=== PATIENT | female | born 1930 | race Caucasian/White ===

== ENCOUNTER 2019-04-25 12:15 | Inpatient (IN) ==
[2019-04-25] MEDS ORDERED: EPINEPHrine 1 MG/ML AMPUL SQ ONE (12:22)
[2019-04-25] MEDS ORDERED: IPRATROPIUM/ALBUTEROL 3 ML AMPUL.NEB NEB ONE (12:22)
[2019-04-25] MEDS ORDERED: methylPREDNISolone SOD SUCC 125 MG/2 ML VIAL IV ONE (12:22)
[2019-04-25] MEDS ORDERED: TERBUTALINE 1 MG/ML VIAL SQ ONE (12:22)
[2019-04-25] MEDS ORDERED: MAGNESIUM SULFATE 2 GM/50 ML BAG IV ONE (12:22)
[2019-04-25] MEDS ORDERED: 0.9 % SODIUM CHLORIDE 1,000 ML IV ONE (12:22)
[2019-04-25] MEDS ORDERED: ALBUTEROL SULFATE 2.5 MG/3 ML NEBULIZER NEB ONE (12:34)
[2019-04-25] MEDS ORDERED: EPINEPHrine 1 MG/ML AMPUL IM ONE (12:38)
[2019-04-25 12:40] LABS: POC Blood Urea Nitrogen 28 mg/dl (8-23); POC CO2 30 mmol/L (22-30); POC Calcium, Ionized 1.25 mmol/L (1.16-1.32); POC Chloride 102 mmol/L (96-108); POC Glucose, Random 179 mg/dL (70-105); POC Potassium 4.6 mmol/L (3.3-5.1); POC Sodium 138 mmol/L (133-145)
[2019-04-25 12:58] LABS: Basophils # (Auto) 0.02 K/mcL (0.00-0.30); Basophils % (Auto) 0.3 % (0.0-2.0); Eosinophils % (Auto) 24.3 % (0.0-7.0); Granulocytes % (Auto) 52.1 % (38.0-78.0); Hematocrit 39.8 % (34.1-44.9); Hemoglobin 13.3 g/dL (11.2-15.7); Lymphocytes # (Auto) 1.09 K/mcL (1.50-4.80); Lymphocytes % (Auto) 14.7 % (15.5-49.0); Mean Cell Volume 97.1 fL (80.0-100.0); Mean Corpuscular HGB Conc 33.4 g/dL (31.0-36.0); Mean Platelet Volume 10.8 fL (7.4-10.4); Monocytes # (Auto) 0.64 K/mcL (0.10-0.90); Monocytes % (Auto) 8.6 % (1.0-12.0); Platelet Count 331 K/mcL (140-440); Red Cell Distribution Width 12.8 % (11.5-14.5); WBC 7.4 K/mcL (4.50-11.00)
--- NOTE | 2019-04-25 13:07 | Emergency Department Note ---
SOB HPI - General Chief Complaint: Shortness of Breath/Dyspnea Stated Complaint: Shortness of breath Time Seen by Provider: 04/25/19 12:22 Source: patient Mode of arrival: ambulatory Limitations: no limitations - History of Present Illness 88-year-old female with history of asthma comes in complaining of shortness of breath for the last 3 days. Her oxygen levels are 62%. She has a cough and some mild congestion but denies any fever. She is a non-smoker and always has been but she was exposed to secondhand smoke as a child and throughout her working years. She does use a BiPAP at night but I am having difficulty getting significant history from her as she is having trouble talking and breathing. No trouble with a bowel movement or urinating Her is here as well and gives me some supplemental history. Review of systems I was unable to obtain other than above She is not DNR and wants everything done including and up to intubation - Related Data Previous Rx's Medication Instructions Recorded predniSONE [Prednisone] 20 mg PO BID 3 Days #12 tab 01/03/18 Albuterol Sulfate [Ventolin] 2 puff INH Q4-6HP PRN #1 inhaler 01/07/18 Ipratropium/Albuterol [Duoneb] 3 ml NEB Q4HRT #120 ampul.neb 01/07/18 Benzonatate 200 mg PO Q8HP PRN #30 cap 01/08/19 Ipratropium/Albuterol [Duoneb] 3 ml NEB Q4HP PRN #30 ampul.neb 01/23/19 guaiFENesin/CODEINE [Robitussin AC] 10 ml PO Q4HP PRN #120 oral.robert 01/23/19 predniSONE [Prednisone] 20 mg PO DAILY #23 tab 01/23/19 Allergies Allergy/AdvReac Type Severity Reaction Status Date / Time codeine [CODEINE] Allergy Mild VOMITING Verified 04/25/19 12:20 egg AdvReac Intermediate Gastrointestinal Verified 04/25/19 12:20 Upset lactase [From Dairy Aid] AdvReac Intermediate Gastrointestinal Verified 04/25/19 12:20 Upset Review of Systems Limitations: ROS unobtainable due to patients medical condition Past Medical History - Past Medical History Attestation: Yes: The following information was validated with the patient. Medical history: Reports: arthritis, asthma, glaucoma, hypertension, other (Raynaud's phenomena) Surgical history ED: Reports: orthopedic, other (Bilateral knees), tonsillectomy - Social History smoking status: Never smoker Alcohol use: Reports: None Drug use: Reports: none Physical Exam Thin female in obvious respiratory failure with oxygen level of 62% now on a nonrebreather mask, now with oxygen saturation levels of 100%. She cannot speak in full sentences and so my history and review of systems is limited. She has significant wheezing throughout all lung rod and is not moving air well. Some cyanosis on her fingers. Oropharynx with dry buccal mucosa. Very fatigued She got a treatment of DuoNeb and then another treatment of albuterol. She is moving air much better now on BiPAP. Normocephalic atraumatic. Conjunctive are clear sclera white nonicteric. No nasal discharge. Heart is regular rate and rhythm. Lungs are much clearer now I do not hear any rales but it is difficult to hear over the sounds of her BiPAP. She is tolerating that well. Abdomen is soft nontender nondistended. No pedal edema. She has osteoarthritic changes to her hands fingers Limitations: no limitations Course Vital Signs Temperature 97.1 F 04/25/19 12:15 Pulse Rate 88 04/25/19 12:15 Respiratory Rate 24 H 04/25/19 12:15 Blood Pressure 160/88 04/25/19 12:15 Pulse Oximetry (%) 62 L 04/25/19 12:15 Temperature 97.1 F 04/25/19 12:15 Pulse Rate 73 04/25/19 14:17 Respiratory Rate 18 04/25/19 14:17 Blood Pressure 134/66 04/25/19 13:46 Pulse Oximetry (%) 100 04/25/19 14:17 Shortness of Breath/Dyspnea - Lab Data Lab results reviewed: Yes I reviewed the patient's lab results. Result diagrams: 04/25/19 12:25 04/25/19 12:25 Lab Results 04/25/19 04/25/19 04/25/19 Range/Units 12:25 12:25 12:25 WBC 7.4 (4.50-11.00) K/mcL RBC 4.10 (3.59-5.38) M/mcL Hgb 13.3 (11.2-15.7) g/dL Hct 39.8 (34.1-44.9) % POC Hct (36.0-48.0) % MCV 97.1 (80.0-100.0) fL MCH 32.4 (26.0-34.0) pg MCHC 33.4 (31.0-36.0) g/dL RDW 12.8 (11.5-14.5) % Plt Count 331 (140-440) K/mcL MPV 10.8 H (7.4-10.4) fL Gran % 52.1 (38.0-78.0) % Lymph % (Auto) 14.7 L (15.5-49.0) % [place] % (Auto) 8.6 (1.0-12.0) % Eos % (Auto) 24.3 H (0.0-7.0) % Baso % (Auto) 0.3 (0.0-2.0) % Gran # 3.86 (1.80-8.00) K/mcL Lymph # (Auto) 1.09 L (1.50-4.80) K/mcL [place] # (Auto) 0.64 (0.10-0.90) K/mcL Eos # (Auto) 1.80 H (0.00-0.70) K/mcL Baso # (Auto) 0.02 (0.00-0.30) K/mcL PT 12.7 (11.9-14.5) sec INR 0.9 (0.9-1.1) D-Dimer 0.87 H (0.00-0.40) ug/ml VBG Lactic Acid (0.5-2.0) mmol/L POC Sodium (133-145) mmol/L Sodium (133-145) mmol/L POC Potassium (3.3-5.1) mmol/L Potassium (3.3-5.1) mmol/L POC Chloride (96-108) mmol/L Chloride (96-108) mmol/L Carbon Dioxide (22-30) mmol/L POC Total CO2 (22-30) mmol/L Anion Gap (8-16) POC BUN (8-23) mg/dl BUN (8-23) mg/dl Creatinine (0.6-1.1) mg/dl POC Creatinine (0.6-1.1) mg/dl GFR Calculation Glucose (70-105) mg/dL POC Glucose (70-105) mg/dL Calcium (8.6-10.4) mg/dl POC WB Ioniz Calcium (1.16-1.32) mmol/L Magnesium (1.6-2.5) mg/dL Total Bilirubin (0.0-1.0) mg/dL AST (0-37) U/l ALT (0-40) U/l Alkaline Phosphatase (39-117) U/L Troponin T (0-0.03) ng/ml Total Protein (5.9-8.4) gm/dL Albumin (3.2-5.2) gm/dL Globulin (2.2-3.7) gm/dL Albumin/Globulin Ratio (1.0-2.3) Lipase (7-60) U/L Procalcitonin < 0.05 (<0.10) ng/mL Urine Color Urine Appearance Urine pH (5.0-9.0) Ur Specific [place] (1.000-1.035) Urine Protein (NEG) mg/dL Urine Glucose (UA) (NEG) mg/dL Urine Ketones (NEG) mg/dL Urine Occult Blood (<0.03) mg/dL Urine Nitrate (NEG) Urine Bilirubin (NEG) mg/dL Urine Urobilinogen (NEG) mg/dL Ur Leukocyte Esterase (NEG) /uL Urine RBC (0-1) /hpf Urine WBC (0-4) /hpf Ur Squamous Epith Cells (0-4) /hpf Urine Bacteria (0) /hpf Hyaline Casts (0-2) /lpf Urine Mucus (0) /hpf Ur Culture Indicated? 04/25/19 04/25/19 04/25/19 Range/Units 12:25 12:25 12:25 WBC (4.50-11.00) K/mcL RBC (3.59-5.38) M/mcL Hgb (11.2-15.7) g/dL Hct (34.1-44.9) % POC Hct 42.0 (36.0-48.0) % MCV (80.0-100.0) fL MCH (26.0-34.0) pg MCHC (31.0-36.0) g/dL RDW (11.5-14.5) % Plt Count (140-440) K/mcL MPV (7.4-10.4) fL Gran % (38.0-78.0) % Lymph % (Auto) (15.5-49.0) % [place] % (Auto) (1.0-12.0) % Eos % (Auto) (0.0-7.0) % Baso % (Auto) (0.0-2.0) % Gran # (1.80-8.00) K/mcL Lymph # (Auto) (1.50-4.80) K/mcL [place] # (Auto) (0.10-0.90) K/mcL Eos # (Auto) (0.00-0.70) K/mcL Baso # (Auto) (0.00-0.30) K/mcL PT (11.9-14.5) sec INR (0.9-1.1) D-Dimer (0.00-0.40) ug/ml VBG Lactic Acid 1.2 (0.5-2.0) mmol/L POC Sodium 138 (133-145) mmol/L Sodium 136 (133-145) mmol/L POC Potassium 4.6 (3.3-5.1) mmol/L Potassium 4.6 (3.3-5.1) mmol/L POC Chloride 102 (96-108) mmol/L Chloride 98 (96-108) mmol/L Carbon Dioxide 21 L (22-30) mmol/L POC Total CO2 30 (22-30) mmol/L Anion Gap 17.0 H (8-16) POC BUN 28 H (8-23) mg/dl BUN 22 (8-23) mg/dl Creatinine 1.0 (0.6-1.1) mg/dl POC Creatinine 1.0 (0.6-1.1) mg/dl GFR Calculation 51 Glucose 185 H (70-105) mg/dL POC Glucose 179 H (70-105) mg/dL Calcium 9.4 (8.6-10.4) mg/dl POC WB Ioniz Calcium 1.25 (1.16-1.32) mmol/L Magnesium 2.2 (1.6-2.5) mg/dL Total Bilirubin 0.2 (0.0-1.0) mg/dL AST 29 (0-37) U/l ALT 20 (0-40) U/l Alkaline Phosphatase 84 (39-117) U/L Troponin T < 0.01 (0-0.03) ng/ml Total Protein 7.8 (5.9-8.4) gm/dL Albumin 4.5 (3.2-5.2) gm/dL Globulin 3.3 (2.2-3.7) gm/dL Albumin/Globulin Ratio 1.4 (1.0-2.3) Lipase 15 (7-60) U/L Procalcitonin (<0.10) ng/mL Urine Color Urine Appearance Urine pH (5.0-9.0) Ur Specific [place] (1.000-1.035) Urine Protein (NEG) mg/dL Urine Glucose (UA) (NEG) mg/dL Urine Ketones (NEG) mg/dL Urine Occult Blood (<0.03) mg/dL Urine Nitrate (NEG) Urine Bilirubin (NEG) mg/dL Urine Urobilinogen (NEG) mg/dL Ur Leukocyte Esterase (NEG) /uL Urine RBC (0-1) /hpf Urine WBC (0-4) /hpf Ur Squamous Epith Cells (0-4) /hpf Urine Bacteria (0) /hpf Hyaline Casts (0-2) /lpf Urine Mucus (0) /hpf Ur Culture Indicated? 04/25/19 Range/Units 13:40 WBC (4.50-11.00) K/mcL RBC (3.59-5.38) M/mcL Hgb (11.2-15.7) g/dL Hct (34.1-44.9) % POC Hct (36.0-48.0) % MCV (80.0-100.0) fL MCH (26.0-34.0) pg MCHC (31.0-36.0) g/dL RDW (11.5-14.5) % Plt Count (140-440) K/mcL MPV (7.4-10.4) fL Gran % (38.0-78.0) % Lymph % (Auto) (15.5-49.0) % [place] % (Auto) (1.0-12.0) % Eos % (Auto) (0.0-7.0) % Baso % (Auto) (0.0-2.0) % Gran # (1.80-8.00) K/mcL Lymph # (Auto) (1.50-4.80) K/mcL [place] # (Auto) (0.10-0.90) K/mcL Eos # (Auto) (0.00-0.70) K/mcL Baso # (Auto) (0.00-0.30) K/mcL PT (11.9-14.5) sec INR (0.9-1.1) D-Dimer (0.00-0.40) ug/ml VBG Lactic Acid (0.5-2.0) mmol/L POC Sodium (133-145) mmol/L Sodium (133-145) mmol/L POC Potassium (3.3-5.1) mmol/L Potassium (3.3-5.1) mmol/L POC Chloride (96-108) mmol/L Chloride (96-108) mmol/L Carbon Dioxide (22-30) mmol/L POC Total CO2 (22-30) mmol/L Anion Gap (8-16) POC BUN (8-23) mg/dl BUN (8-23) mg/dl Creatinine (0.6-1.1) mg/dl POC Creatinine (0.6-1.1) mg/dl GFR Calculation Glucose (70-105) mg/dL POC Glucose (70-105) mg/dL Calcium (8.6-10.4) mg/dl POC WB Ioniz Calcium (1.16-1.32) mmol/L Magnesium (1.6-2.5) mg/dL Total Bilirubin (0.0-1.0) mg/dL AST (0-37) U/l ALT (0-40) U/l Alkaline Phosphatase (39-117) U/L Troponin T (0-0.03) ng/ml Total Protein (5.9-8.4) gm/dL Albumin (3.2-5.2) gm/dL Globulin (2.2-3.7) gm/dL Albumin/Globulin Ratio (1.0-2.3) Lipase (7-60) U/L Procalcitonin (<0.10) ng/mL Urine Color Yellow Urine Appearance Hazy Urine pH 6.0 (5.0-9.0) Ur Specific [place] 1.018 (1.000-1.035) Urine Protein 30 A (NEG) mg/dL Urine Glucose (UA) Negative (NEG) mg/dL Urine Ketones Neg (NEG) mg/dL Urine Occult Blood 0.2 A (<0.03) mg/dL Urine Nitrate Neg (NEG) Urine Bilirubin Neg (NEG) mg/dL Urine Urobilinogen Neg (NEG) mg/dL Ur Leukocyte Esterase 75 A (NEG) /uL Urine RBC 64 H (0-1) /hpf Urine WBC 119 H (0-4) /hpf Ur Squamous Epith Cells < 1 (0-4) /hpf Urine Bacteria Mod A (0) /hpf Hyaline Casts 9 H (0-2) /lpf Urine Mucus Few (0) /hpf Ur Culture Indicated? Yes Shows pH 7.25 PCO2 of 61 PO2 of 181 on 6 L nonrebreather mask - Radiology Data Radiology results reviewed: Yes I reviewed the patient's radiology results. X-ray of the chest shows stigmata of chronic emphysema versus asthma. No infiltrate is seen. No acute change - EKG Data EKG attestation: Yes I reviewed and interpreted this EKG. EKG results narrative: EKG shows sinus rhythm with a rate of 77 first-degree AV block. She does have a widened QRS with nonspecific interventricular conduction delay. ST elevation is noted in V1 and V2. When compared to 01/[address] elevation back then in V1 and V2 but it does seem slightly worse today especially in these leads. However she previously had ST depression in the inferior leads and that is not present today. Machine read is the same with possible anteroseptal infarct- suspect heart strain secondary to respiratory failure Critical Care Time Critical Care Time: Yes Total Critical Care Time: 30 Attestation: This patient required 30 minutes of additional critical care time in addition to valuation and management time. This included serial evaluations coordination of care and documentation as well as discussion with her and her family. I was immediately available to the patient the entire time she was in the ER Disposition Pt seen by CONTAINER MAKER/PA only: No Clinical Impression: Asthma with exacerbation Qualifiers: Asthma severity: severe Asthma persistence: unspecified Qualified Code(s): J45 .901 - Unspecified asthma with (acute) exacerbation Respiratory failure with hypoxia and hypercapnia Qualifiers: Chronicity: acute Qualified Code(s): J96.01 - Acute respiratory failure with hypoxia Summary: Initially started on nasal cannula oxygen and then nonrebreather mask. After the first DuoNeb she was still having significant trouble moving air so I gave her epinephrine 0.3 mg IM. She also got subcu terbutaline IV magnesium. We then gave her another dose of albuterol nebulized. She had much improvement with 2 rounds of nebulizer. However blood gases showed respiratory failure with both hypoxia and hypercapnia and she is not moving air well so I discussed with her moving to BiPAP. She wants everything done-in fact it sounds like she may be on CPAP or BiPAP at night with Omar but I am unable to get further details as her and her do not know the specifics about what exactly machine she is on at night. Anyways we started BiPAP and she was doing much better. We will give her continuous albuterol nebulizer. Chest x-ray shows stigmata of asthma or COPD but no acute infiltrate. EKG shows some heart strain but it does not seem much worse than January's EKG 3 months ago. Troponin is negative and laboratories are unrevealing. Patient will require ICU admission to continue BiPAP and respiratory care Flu swab was negative I discussed the case with -he agreed except the patient further care and evaluation in the hospital Disposition: Xfer As Inpt ([facility]) Condition: Critical Referrals: Iftikhar Rios MD [Primary Care Provider] -
[2019-04-25 13:11] LABS: INR 0.9 (0.9-1.1); Prothrombin Time 12.7 sec (11.9-14.5)
--- NOTE | 2019-04-25 13:22 | XRay Report ---
CLINICAL INFORMATION:Dyspnea TECHNIQUE: AP portable semiupright chest x-ray COMPARISON: Previous chest x-ray dated 01/23/2019, 01/08/2019 FINDINGS:Lungs are negative. No parenchymal infiltrate or mass. No focal pulmonary parenchymal abnormalities. Heart size and vascularity are normal. Eun and mediastinum are negative. There is no pleural fluid. Degenerative joint disease in both glenohumeral joints. Rotator cuff degeneration in the left shoulder IMPRESSION: No acute abnormality. No interval change Interpreted and Authenticated by: Brent Klein 04/25/19
[2019-04-25 13:34] LABS: Chloride 98 mmol/L (96-108)
[2019-04-25 13:36] LABS: ALT/SGPT 20 U/l (0-40); AST/SGOT 29 U/l (0-37); Albumin 4.5 gm/dL (3.2-5.2); Albumin/Globulin Ratio 1.4 (1.0-2.3); Alkaline Phosphatase 84 U/L (39-117); Bilirubin,Total 0.2 mg/dL (0.0-1.0); Blood Urea Nitrogen 22 mg/dl (8-23); Calcium 9.4 mg/dl (8.6-10.4); Carbon Dioxide 21 mmol/L (22-30); Globulin 3.3 gm/dL (2.2-3.7); Glomerular Filtration Rate 51; Glucose 185 mg/dL (70-105)
[2019-04-25] MEDS ORDERED: ALBUTEROL SULFATE 5 MG/ML NEB SOLUTION BOTTLE NEB ONE (13:52)
[2019-04-25 14:25] LABS: Appearance,Urine HAZY; Bacteria,Urine MOD /hpf (0); Bilirubin,Urine NEG (NEG); Color,Urine YELLOW; Culture Indicated,Urine YES; Glucose,Urine (UA) NEGATIVE (NEG); Ketones,Urine NEG (NEG); Leukocyte Esterase,Urine 75 /uL (NEG); Mucus,Urine FEW /hpf (0); Nitrate,Urine NEG (NEG); Protein,Urine 30 mg/dL (NEG); Specific Gravity,Urine 1.018 (1.000-1.035); Urine Blood 0.2 mg/dL (<0.03); Urine Hyaline Cast 9 /lpf (0-2); Urine RBC 64 /hpf (0-1); Urine Squamous Epithelial Cell < 1 /hpf (0-4); Urine WBC 119 /hpf (0-4); Urobilinogen,Urine NEG (NEG)
--- NOTE | 2019-04-25 15:01 | Internal Med History&Physical ---
Medical - H&P: HPI Patient information: Note initiated : 04/25/19 at 2:59 pm Service Date, if different from initiated Date: [] Patient: Jaiden Acosta 88 y/o F admitted on for Shortness of breath. Chief Complaint: [] History of present illness: Ms. Acosta is a 88 year old F History is difficult obtain as patient is currently on BiPAP but per the staffing notes and what patient was able to relay. Sounds like she has had shortness of breath worsening for past 3 days. She was found to have oxygen saturations of 62% on room air. She denied a cough to me but per note she had a cough with some congestion. Denied fever. She is never been a smoker but she is been a exposed to secondhand smoke as a child and throughout her working years. Sounds like she uses a CPAP machine at night. She did have PFTs done by Dr. Sandra last fall which were reversible consistent with asthma but per his note also could be consistent with COPD. She does admit to wearing oxygen day and night at 2.5 L. In the ER she got multiple breathing treatments including continuous nebulizers with improvement. She is also placed on BiPAP for hypoxia and hypercapnic respiratory failure and is showing improvement. Laboratory work-up unremarkable except for the respiratory acidosis on ABG. Chest x-ray unremarkable. Also complains of dysuria. Review of Systems: Pertinent positives as above. Denies headache/fever/chills/nausea/vomi ting/chest or abdominal pain/diarrhea. Remaining 10 point review of system reviewed negative Medical - H&P: PMH Medical history: Past medical history: COPD Asthma Raynauds Hypertension Depression anxiety 2016 she fell after being intoxicated and suffered a subdural hematoma, was admitted at [facility] for observation. Past surgical history: Bilateral knee surgery Tonsillectomy Appendectomy Family: Mother had breast cancer Father is healthy Social history: Patient never smoked but has been exposed to secondhand smoke throughout her childhood and throughout her working years Drinks alcohol socially Ambulates occasionally with a walker when she feels she needs it Lives at home with her Medical - H&P: Meds Home Medications Medication Instructions Recorded Confirmed Type predniSONE [Prednisone] 20 mg PO BID 3 Days #12 tab 01/03/18 04/25/19 Rx Albuterol Sulfate [Ventolin] 2 puff INH Q4-6HP PRN #1 inhaler 01/07/18 04/25/19 Rx Ipratropium/Albuterol [Duoneb] 3 ml NEB Q4HRT #120 ampul.neb 01/07/18 04/25/19 Rx Benzonatate 200 mg PO Q8HP PRN #30 cap 01/08/19 04/25/19 Rx Ipratropium/Albuterol [Duoneb] 3 ml NEB Q4HP PRN #30 ampul.neb 01/23/19 04/25/19 Rx guaiFENesin/CODEINE [Robitussin AC] 10 ml PO Q4HP PRN #120 oral.robert 01/23/19 04/25/19 Rx predniSONE [Prednisone] 20 mg PO DAILY #23 tab 01/23/19 04/25/19 Rx Allergies Allergy/AdvReac Type Severity Reaction Status Date / Time codeine [CODEINE] Allergy Mild VOMITING Verified 04/25/19 12:20 egg AdvReac Intermediate Gastrointestinal Verified 04/25/19 12:20 Upset lactase [From Dairy Aid] AdvReac Intermediate Gastrointestinal Verified 04/25/19 12:20 Upset Medical - H&P: Exam - Constitutional Vitals: Temp Pulse Resp BP Pulse Ox 97.1 F 73 18 134/66 100 04/25/19 12:15 04/25/19 14:17 04/25/19 14:17 04/25/19 13:46 04/25/19 14:17 Exam: General: Alert, Awake, No acute Distress Eyes/N/T: EOMI, PERRL, MM Head/Neck: neck supple, normocephalic atraumatic CV: RRR, No murmurs, normal s1/s2 Pulm: b/l diminished, significant wheezing b/l exp, no /rales Abd: soft, nontender, +BS x4 Ext: no clubbing/cyanosis/edema Neuro: Alert, no focal deficits, moves all extremities, CN 2-12 grossly intact, symmetrical strength b/l upper/lower, sensations intact b/l upper/lower Skin: warm/dry Medical - H&P: Reslt - Labs CBC & Chem 7: 04/25/19 12:25 04/25/19 12:25 Labs: Short CBC 04/25/19 Range/Units 12:25 WBC 7.4 (4.50-11.00) K/mcL Hgb 13.3 (11.2-15.7) g/dL Hct 39.8 (34.1-44.9) % Plt Count 331 (140-440) K/mcL BMP 04/25/19 12:25 Sodium 136 Potassium 4.6 Chloride 98 Carbon Dioxide 21 L BUN 22 Creatinine 1.0 Glucose 185 H Calcium 9.4 Cardiac Enzymes 04/25/19 Range/Units 12:25 Troponin T < 0.01 (0-0.03) ng/ml Liver Function 04/25/19 Range/Units 12:25 Total Bilirubin 0.2 (0.0-1.0) mg/dL AST 29 (0-37) U/l ALT 20 (0-40) U/l Alkaline Phosphatase 84 (39-117) U/L Albumin 4.5 (3.2-5.2) gm/dL Urine 04/25/19 Range/Units 13:40 Urine Color Yellow Urine Appearance Hazy Urine pH 6.0 (5.0-9.0) Ur Specific [place] 1.018 (1.000-1.035) Urine Protein 30 A (NEG) mg/dL Urine Glucose (UA) Negative (NEG) mg/dL Medical - H&P: A/P - Narrative A/P Narrative: A: *Acute hypoxic/hypercapnic respiratory failure: 2/2 COPD/asthma -CXR with COPD changes, no acute findings *AECOPD (2.5L@home and ?CPAP@night: *UTI: *HTN: *Depression/anxiety: * P: -BiPAP, wean as able, follow-up ABG -Steroids (wean) -IS/Acapella/RT/nebs -Antibiotics empiric and for UTI, pending UC -Obtain records from primary care provider and [facility] regarding breathing device -SSI while on steroids -clarify home meds - -ppx: Lovenox full code
[2019-04-25] MEDS ORDERED: MAGNESIUM SULFATE 2 GM/50 ML BAG IV PRN (16:52)
[2019-04-25] MEDS ORDERED: POTASSIUM CHLORIDE 40 MEQ in DEXTROSE 5% IN WATER 500 ML IV PRN (16:52)
[2019-04-25] MEDS ORDERED: ONDANSETRON 4 MG/2 ML VIAL IV PRN (16:52)
[2019-04-25] MEDS ORDERED: IPRATROPIUM/ALBUTEROL 3 ML AMPUL.NEB NEB PRN (16:52)
[2019-04-25] MEDS ORDERED: POLYETHYLENE GLYCOL 3350 17 GM PACKET PO PRN (16:52)
[2019-04-25] MEDS ORDERED: POTASSIUM CHLORIDE 20 MEQ TABLET PO PRN ×2 (16:52)
[2019-04-25] MEDS ORDERED: SENNOSIDES 1 TABLET PO PRN (16:52)
[2019-04-25] MEDS ORDERED: DEXTROSE 50% 50 ML VIAL IV PRN (16:52)
[2019-04-25] MEDS ORDERED: DEXTROSE 31 GM ORAL.SUSP PO PRN (16:52)
[2019-04-25] MEDS: LEVOFLOXACIN 500 MG/100 ML BAG IV SCH (17:37)
[2019-04-25] MEDS: INSULIN LISPRO 1 UNIT/0.01 ML UNIT SQ SCH ×2 (17:43→21:10)
[2019-04-25] MEDS: BUDESONIDE 0.5 MG/2 ML AMPUL.NEB NEB SCH ×2 (18:07→20:33)
[2019-04-25] MEDS: IPRATROPIUM/ALBUTEROL 3 ML AMPUL.NEB NEB SCH (18:07)
[2019-04-25] MEDS ORDERED: ALPRAZOLAM PO PRN (19:51)
[2019-04-25] MEDS ORDERED: ALBUTEROL SULFATE 1 PUFF INHALER INH PRN (19:51)
[2019-04-25] MEDS ORDERED: ALPRAZolam 0.5 MG TABLET PO PRN (20:53)
[2019-04-25] MEDS ORDERED: IMIPRAMINE 50 MG TABLET PO SCH ×2 (21:00)
[2019-04-25] MEDS: methylPREDNISolone SOD SUCC 125 MG/2 ML VIAL IV SCH (21:09)
[2019-04-25] MEDS: 0.9 % SODIUM CHLORIDE 10 ML SYRINGE IV SCH (21:11)
[2019-04-25] MEDS ORDERED: ALPRAZolam 0.5 MG TABLET ONE (21:29)
[2019-04-25] MEDS: BIMATOPROST EYE OS SCH (21:48)
[2019-04-25] MEDS ORDERED: PRAMIPEXOLE 1 MG TABLET PO ONE (23:40)
[2019-04-26] MEDS: IPRATROPIUM/ALBUTEROL 3 ML AMPUL.NEB NEB SCH ×4 (03:19→18:07)
[2019-04-26] MEDS: methylPREDNISolone SOD SUCC 125 MG/2 ML VIAL IV SCH ×3 (05:56→22:02)
[2019-04-26] MEDS: 0.9 % SODIUM CHLORIDE 10 ML SYRINGE IV SCH ×4 (05:57→22:04)
[2019-04-26] MEDS: BUDESONIDE 0.5 MG/2 ML AMPUL.NEB NEB SCH ×3 (07:45→22:09)
--- NOTE | 2019-04-26 07:53 | Internal Med Progress Note ---
Medical - PN: Subj Patient information: Note initiated : 04/26/19 at 7:48 am Service Date, if different from initiated Date: [] Patient: Jaiden Acosta 88 y/o F admitted on 04/25/19 for Shortness of breath. Chief Complaint: [] Interval history: Ms. Acosta is a 88 year old F History is difficult obtain as patient is currently on BiPAP but per the staffing notes and what patient was able to relay. Sounds like she has had shortness of breath worsening for past 3 days. She was found to have oxygen saturations of 62% on room air. She denied a cough to me but per note she had a cough with some congestion. Denied fever. She is never been a smoker but she is been a exposed to secondhand smoke as a child and throughout her working years. Sounds like she uses a CPAP machine at night. She did have PFTs done by Dr. Buck smith last fall which were reversible consistent with asthma but per his note also could be consistent with COPD. She does admit to wearing oxygen day and night at 2.5 L. In the ER she got multiple breathing treatments including continuous nebulizers with improvement. She is also placed on BiPAP for hypoxia and hypercapnic respiratory failure and is showing improvement. Laboratory work-up unremarkable except for the respiratory acidosis on ABG. Chest x-ray unremarkable. Also complains of dysuria. 04/26 Off BiPAP now on nasal cannula. Has occasional cough. Shortness of breath improving this still feels tight. Sitting up in chair. Review of Systems: denies headache/fever/chills/nausea/vomiting/chest or abdominal pain/diarrhea. Otherwise see above. - Constitutional Vitals: Vital Signs Temp Pulse Resp BP Pulse Ox 97.0 F 66 17 166/74 100 04/26/19 00:13 04/26/19 05:00 04/26/19 05:00 04/26/19 04:03 04/26/19 05:00 Period Temp Pulse Resp BP Sys/Mckeon Pulse Ox Last 24 Hr 97.0 F-98.3 F 65-94 14-30 128-177/65-156 62-100 Intake and Output 04/25/19 04/26/19 04/26/19 21:59 05:59 13:59 Intake Total 1150 Balance 1150 Weight 47.219 kg Intake & Output: Intake & Output 04/25/19 04/26/19 04/26/19 21:59 05:59 13:59 Intake Total 1150 Balance 1150 Weight 47.219 kg Intake: IV 1150 Sodium Chloride 0.9% 1,000 ml @ 1000 Wide Open IV .Q0M ONE Rx#: [id number] Exam: General: Alert, Awake, No acute Distress Eyes/N/T: EOMI, Head/Neck: neck supple, CV: RRR, No murmurs, normal s1/s2 Pulm: b/l diminished but improved, wheezing b/l exp also improved, prolonged exp phase, no /rales Abd: soft, nontender, +BS x4 Ext: no clubbing/cyanosis/edema Neuro: Alert, no focal deficits, moves all extremities, Skin: warm/dry Medical - PN: Obj Da - Labs CBC & Chem 7: 04/25/19 12:25 04/26/19 05:35 Labs: Abnormal Lab Results 04/25/19 04/25/19 04/25/19 13:40 12:25 12:25 MPV Lymph % (Auto) Eos % (Auto) Lymph # (Auto) Eos # (Auto) D-Dimer 0.87 H Carbon Dioxide 21 L Anion Gap 17.0 H POC BUN 28 H Glucose 185 H POC Glucose 179 H Urine Protein 30 A Urine Occult Blood 0.2 A Ur Leukocyte Esterase 75 A Urine RBC 64 H Urine WBC 119 H Urine Bacteria Mod A Hyaline Casts 9 H 04/25/19 12:25 MPV 10.8 H Lymph % (Auto) 14.7 L Eos % (Auto) 24.3 H Lymph # (Auto) 1.09 L Eos # (Auto) 1.80 H D-Dimer Carbon Dioxide Anion Gap POC BUN Glucose POC Glucose Urine Protein Urine Occult Blood Ur Leukocyte Esterase Urine RBC Urine WBC Urine Bacteria Hyaline Casts Meds: Medications Acetaminophen (Tylenol) 650 mg PO Q6HP PRN PRN Reason: PAIN/FEVER > 101 Albuterol Sulfate (Ventolin) 2 puff INH Q4-6HP PRN PRN Reason: Wheezing Albuterol/Ipratropium (Duoneb) 3 ml NEB Q6HRT [facility] Last Admin: 04/26/19 03:19 Dose: 3 ml Documented by: Albuterol/Ipratropium (Duoneb) 3 ml NEB Q4HP PRN PRN Reason: Shortness Of Breath Last Admin: 04/25/19 22:24 Dose: 3 ml Documented by: Alprazolam (Xanax) 1 mg PO HSP PRN PRN Reason: Insomnia Budesonide (Pulmicort) 0.5 mg NEB Q12 [facility] Last Admin: 04/25/19 20:33 Dose: Not Given Documented by: Dextrose (Dextrose 50%) 0 ml IV UD PRN PRN Reason: Hypoglycemia Diagnostic Test (Pha) (Accu-Chek) 1 each FS [facility] Last Admin: 04/25/19 21:09 Dose: 1 each Documented by: Duloxetine HCl (Cymbalta) 60 mg PO DAILY [facility] Enoxaparin Sodium (Lovenox) 40 mg SQ DAILY [facility] Fluoxetine HCl (Prozac) 40 mg PO DAILY [facility] Glucose (Insta-Glucose) 15 gm PO PRN PRN PRN Reason: Hypoglycemia Potassium Chloride 40 meq/ (Dextrose) 520 mls @ 130 mls/hr IV UD PRN PRN Reason: Potassium < 3 Magnesium Sulfate (Magnesium Sulfate) 2 gm in 50 mls @ 50 mls/hr IV UD PRN PRN Reason: Magnesium </= 1.6 Levofloxacin (Levaquin) 500 mg in 100 mls @ 100 mls/hr IV Q24H [facility]; Protocol Last Infusion: 04/25/19 18:37 Dose: Infused Documented by: Imipramine HCl (Tofranil) 50 mg PO HS [facility] Last Admin: 04/25/19 21:10 Dose: 50 mg Documented by: Insulin Human Lispro (Humalog) 0 unit SQ [facility]; Protocol Last Admin: 04/25/19 21:10 Dose: 2 units Documented by: Levothyroxine Sodium (Synthroid) 50 mcg PO QAMAC [facility] Methylprednisolone Sodium Succinate (Solu-Medrol) 80 mg IV Q8 [facility] Last Admin: 04/26/19 05:56 Dose: 80 mg Documented by: Ondansetron HCl (Zofran) 4 mg IV Q4HP PRN PRN Reason: Nausea And Vomiting Bimatoprost [Lumigan (] Eye Drops) 1 dose OS [facility] Last Admin: 04/25/19 21:48 Dose: Not Given Documented by: Polyethylene Glycol (Miralax) 17 gm PO DAILYP PRN PRN Reason: Constipation Potassium Chloride (Kdur) 40 meq PO UD PRN PRN Reason: Potssium is 3-3.5 Potassium Chloride (Kdur) 40 meq PO UD PRN PRN Reason: Potassium < 3 Senna (Senokot) 2 tab PO DAILYP PRN PRN Reason: Constipation Sodium Chloride (Saline Flush) 10 ml IV Q8 [facility] Last Admin: 04/26/19 05:57 Dose: 10 ml Documented by: Timolol Maleate (Timoptic 0.25% Ophth Drops) 1 gtt OU DAILY [facility] Medical - PN: A/P - Time Spent With Patient Total time spent is greater than 50% in coordination of care (as documented) at patient's floor/unit and/or counseling patient: - Narrative A/P Narrative: A: *Acute hypoxic/hypercapnic respiratory failure: 2/2 COPD/asthma -CXR with COPD changes, no acute findings -required BIpap initially, now on NC *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 Sandra -ppx: Lovenox full code Medical - PN: Qual - VTE Deep Vein Thrombosis/Pulmonary Embolism Present on Admission: No
[2019-04-26] MEDS: INSULIN LISPRO 1 UNIT/0.01 ML UNIT SQ SCH ×4 (08:49→22:02)
[2019-04-26] MEDS: LEVOTHYROXINE 50 MCG TABLET PO SCH (08:49)
[2019-04-26] MEDS: FLUoxetine HCL 20 MG CAPSULE PO SCH (08:50)
[2019-04-26] MEDS: ENOXAPARIN 40 MG/0.4 ML SYRINGE SQ SCH (08:50)
[2019-04-26] MEDS: DULoxetine 30 MG CAPSULE PO SCH (08:50)
[2019-04-26] MEDS ORDERED: PRAMIPEXOLE 0.25 MG TABLET PO SCH ×2 (09:00→21:00)
[2019-04-26] MEDS: LEVOFLOXACIN 500 MG/100 ML BAG IV SCH (09:10)
[2019-04-26 09:36] LABS: ALT/SGPT 17 U/l (0-40); AST/SGOT 22 U/l (0-37); Albumin 3.8 gm/dL (3.2-5.2); Albumin/Globulin Ratio 1.4 (1.0-2.3); Alkaline Phosphatase 61 U/L (39-117); Bilirubin,Direct < 0.2 mg/dL (0.0-0.3); Bilirubin,Total 0.2 mg/dL (0.0-1.0); Blood Urea Nitrogen 16 mg/dl (8-23); Carbon Dioxide 21 mmol/L (22-30); Chloride 99 mmol/L (96-108); Globulin 2.8 gm/dL (2.2-3.7); Glomerular Filtration Rate 67; Glucose 141 mg/dL (70-105); Lactate Dehydrogenase 273 U/L (94-250); Phosphorous 3.3 mg/dL (2.7-4.5); Triglycerides 40 mg/dl (<150); Uric Acid 3.5 mg/dL (2.5-8.0)
[2019-04-26] MEDS: TELMISARTAN PO SCH (12:21)
[2019-04-26] MEDS: HCTZ PO SCH (12:21)
[2019-04-26] MEDS: TIMOLOL 0.25% OPHTH DROPS BOTTLE 5ML OU SCH (17:02)
[2019-04-26] MEDS ORDERED: ALPRAZolam 0.5 MG TABLET PO PRN (18:38)
[2019-04-26] MEDS ORDERED: ENALAPRILAT 1.25 MG/ML VIAL IV PRN (20:37)
[2019-04-26] MEDS ORDERED: FLUTICASONE/SALMETEROL 250/50 INHALER #14 INH SCH ×2 (21:00)
[2019-04-26] MEDS ORDERED: IMIPRAMINE 25 MG TABLET PO SCH (21:00)
[2019-04-26] MEDS ORDERED: BENZONATATE 100 MG CAPSULE PO ONE (21:10)
[2019-04-26] MEDS: BIMATOPROST EYE OS SCH (21:14)
[2019-04-26] MEDS: hydrALAZINE 20 MG/ML VIAL IV PRN (21:52)
[2019-04-26] MEDS ORDERED: PRAMIPEXOLE 1 MG TABLET PO ONE (23:16)
[2019-04-27] MEDS: IPRATROPIUM/ALBUTEROL 3 ML AMPUL.NEB NEB SCH ×5 (01:31→23:40)
[2019-04-27] MEDS: ACETAMINOPHEN 325 MG TABLET PO PRN ×3 (01:41→14:53)
[2019-04-27] MEDS: hydrALAZINE 20 MG/ML VIAL IV PRN ×4 (02:06→23:44)
[2019-04-27] MEDS ORDERED: BENZONATATE 100 MG CAPSULE PO ONE (04:21)
[2019-04-27] MEDS: 0.9 % SODIUM CHLORIDE 10 ML SYRINGE IV SCH ×5 (06:02→21:33)
[2019-04-27] MEDS: methylPREDNISolone SOD SUCC 125 MG/2 ML VIAL IV SCH (06:02)
[2019-04-27] MEDS: BUDESONIDE 0.5 MG/2 ML AMPUL.NEB NEB SCH ×3 (07:00→20:32)
[2019-04-27] MEDS: LEVOTHYROXINE 50 MCG TABLET PO SCH (07:05)
[2019-04-27] MEDS: INSULIN LISPRO 1 UNIT/0.01 ML UNIT SQ SCH ×4 (07:43→20:42)
--- NOTE | 2019-04-27 08:12 | Internal Med Progress Note ---
Medical - PN: Subj Patient information: Note initiated : 04/27/19 at 8:08 am Service Date, if different from initiated Date: [] Patient: Jaiden Acosta 88 y/o F admitted on 04/25/19 for Shortness of breath. Chief Complaint: [] Interval history: Ms. Acosta is a 88 year old F History is difficult obtain as patient is currently on BiPAP but per the staffing notes and what patient was able to relay. Sounds like she has had shortness of breath worsening for past 3 days. She was found to have oxygen saturations of 62% on room air. She denied a cough to me but per note she had a cough with some congestion. Denied fever. She is never been a smoker but she is been a exposed to secondhand smoke as a child and throughout her working years. Sounds like she uses a CPAP machine at night. She did have PFTs done by Dr. Buck smith last fall which were reversible consistent with asthma but per his note also could be consistent with COPD. She does admit to wearing oxygen day and night at 2.5 L. In the ER she got multiple breathing treatments including continuous nebulizers with improvement. She is also placed on BiPAP for hypoxia and hypercapnic respiratory failure and is showing improvement. Laboratory work-up unremarkable except for the respiratory acidosis on ABG. Chest x-ray unremarkable. Also complains of dysuria. 04/26 Off BiPAP now on nasal cannula. Has occasional cough. Shortness of breath improving this still feels tight. Sitting up in chair. 04/27 Doing much better today. Is on room air at this time. Still has cough and occasional bringing up phlegm. Review of Systems: denies headache/fever/chills/nausea/vomiting/chest or abdominal pain/diarrhea. Otherwise see above. - Constitutional Vitals: Vital Signs Temp Pulse Resp BP Pulse Ox 97.7 F 90 21 123/51 92 04/27/19 00:00 04/27/19 07:11 04/27/19 07:11 04/27/19 02:45 04/27/19 02:56 Period Temp Pulse Resp BP Sys/Mckeon Pulse Ox Last 24 Hr 97 F-98.6 F 60-91 16-98 123-198/51-95 92-100 Intake and Output 04/26/19 04/27/19 04/27/19 21:59 05:59 13:59 Intake Total 490 Output Total 475 125 Balance 15 -125 Weight 47.718 kg Intake & Output: Intake & Output 04/26/19 04/27/19 04/27/19 21:59 05:59 13:59 Intake Total 490 Output Total 475 125 Balance 15 -125 Weight 47.718 kg Intake: Oral 490 Output: Void Amount 475 125 Other: Meal Dinner Percent of Meal Consumed 25% Feeding Ability Independent Urine Appearance Clear Clear Urine Color Pale Straw Bright Yellow Urine Odor Normal Normal Exam: General: Alert, Awake, No acute Distress Eyes/N/T: EOMI, Head/Neck: neck supple, CV: RRR, No murmurs, normal s1/s2 Pulm: b/l mild wheezing exp - improving, prolonged exp phase, no /rales Abd: soft, nontender, +BS x4 Ext: no clubbing/cyanosis/edema Neuro: Alert, no focal deficits, moves all extremities, Skin: warm/dry Medical - PN: Obj Da - Labs CBC & Chem 7: 04/25/19 12:25 04/26/19 05:35 Labs: Abnormal Lab Results 04/26/19 04/25/19 04/25/19 05:35 13:40 12:25 MPV Lymph % (Auto) Eos % (Auto) Lymph # (Auto) Eos # (Auto) D-Dimer Carbon Dioxide 21 L 21 L Anion Gap 17.0 H POC BUN 28 H Glucose 141 H 185 H POC Glucose 179 H Lactate Dehydrogenase 273 H Urine Protein 30 A Urine Occult Blood 0.2 A Ur Leukocyte Esterase 75 A Urine RBC 64 H Urine WBC 119 H Urine Bacteria Mod A Hyaline Casts 9 H 04/25/19 04/25/19 12:25 12:25 MPV 10.8 H Lymph % (Auto) 14.7 L Eos % (Auto) 24.3 H Lymph # (Auto) 1.09 L Eos # (Auto) 1.80 H D-Dimer 0.87 H Carbon Dioxide Anion Gap POC BUN Glucose POC Glucose Lactate Dehydrogenase Urine Protein Urine Occult Blood Ur Leukocyte Esterase Urine RBC Urine WBC Urine Bacteria Hyaline Casts Meds: Medications Acetaminophen (Tylenol) 650 mg PO Q6HP PRN PRN Reason: PAIN/FEVER > 101 Last Admin: 04/27/19 07:05 Dose: 650 mg Documented by: Albuterol/Ipratropium (Duoneb) 3 ml NEB Q6HRT [facility] Last Admin: 04/27/19 06:50 Dose: 3 ml Documented by: Albuterol/Ipratropium (Duoneb) 3 ml NEB Q4HP PRN PRN Reason: Shortness Of Breath Last Admin: 04/25/19 22:24 Dose: 3 ml Documented by: Alprazolam (Xanax) 2 mg PO HSP PRN PRN Reason: Insomnia Last Admin: 04/26/19 21:51 Dose: 2 mg Documented by: Budesonide (Pulmicort) 0.5 mg NEB Q12 [facility] Last Admin: 04/27/19 07:00 Dose: 0.5 mg Documented by: Dextrose (Dextrose 50%) 0 ml IV UD PRN PRN Reason: Hypoglycemia Diagnostic Test (Pha) (Accu-Chek) 1 each FS ACHS [facility] Last Admin: 04/27/19 07:35 Dose: 1 each Documented by: Duloxetine HCl (Cymbalta) 60 mg PO DAILY [facility] Last Admin: 04/26/19 08:50 Dose: 60 mg Documented by: Enalaprilat (Vasotec) 0 mg IV Q2HP PRN PRN Reason: Hypertension Enoxaparin Sodium (Lovenox) 40 mg SQ DAILY [facility] Last Admin: 04/26/19 08:50 Dose: 40 mg Documented by: Fluoxetine HCl (Prozac) 40 mg PO DAILY [facility] Last Admin: 04/26/19 08:50 Dose: 40 mg Documented by: Glucose (Insta-Glucose) 15 gm PO PRN PRN PRN Reason: Hypoglycemia Hydralazine HCl (Apresoline) 0 mg IV Q2HP PRN PRN Reason: Hypertension Last Admin: 04/27/19 02:06 Dose: 10 mg Documented by: Potassium Chloride 40 meq/ (Dextrose) 520 mls @ 130 mls/hr IV UD PRN PRN Reason: Potassium < 3 Magnesium Sulfate (Magnesium Sulfate) 2 gm in 50 mls @ 50 mls/hr IV UD PRN PRN Reason: Magnesium </= 1.6 Levofloxacin (Levaquin) 500 mg in 100 mls @ 100 mls/hr IV Q24H [facility]; Protocol Last Infusion: 04/26/19 10:15 Dose: Infused Documented by: Imipramine HCl (Tofranil) 50 mg PO HS [facility] Last Admin: 04/26/19 21:51 Dose: 50 mg Documented by: Insulin Human Lispro (Humalog) 0 unit SQ ACHS [facility]; Protocol Last Admin: 04/27/19 07:43 Dose: 2 units Documented by: Levothyroxine Sodium (Synthroid) 50 mcg PO QAMAC [facility] Last Admin: 04/27/19 07:05 Dose: 50 mcg Documented by: Methylprednisolone Sodium Succinate (Solu-Medrol) 40 mg IV Q8 [facility] Last Admin: 04/27/19 06:02 Dose: 40 mg Documented by: Ondansetron HCl (Zofran) 4 mg IV Q4HP PRN PRN Reason: Nausea And Vomiting Bimatoprost [Lumigan (] Eye Drops) 1 dose OS [facility] Last Admin: 04/26/19 21:14 Dose: Not Given Documented by: Telmisartan/Hctz 80/ (12.5 Mg Tab) 1 dose PO DAILY [facility] Last Admin: 04/26/19 12:21 Dose: 1 dose Documented by: Polyethylene Glycol (Miralax) 17 gm PO DAILYP PRN PRN Reason: Constipation Potassium Chloride (Kdur) 40 meq PO UD PRN PRN Reason: Potssium is 3-3.5 Potassium Chloride (Kdur) 40 meq PO UD PRN PRN Reason: Potassium < 3 Pramipexole Dihydrochloride (Mirapex) 0.25 mg PO [facility] Last Admin: 04/26/19 21:51 Dose: 0.25 mg Documented by: Senna (Senokot) 2 tab PO DAILYP PRN PRN Reason: Constipation Sodium Chloride (Saline Flush) 10 ml IV Q8 [facility] Last Admin: 04/27/19 06:02 Dose: 10 ml Documented by: Timolol Maleate (Timoptic 0.25% Ophth Drops) 1 gtt OU DAILY [facility] Last Admin: 04/26/19 17:02 Dose: Not Given Documented by: Medical - PN: A/P - Time Spent With Patient Total time spent is greater than 50% in coordination of care (as documented) at patient's floor/unit and/or counseling patient: - Narrative A/P Narrative: A: *Acute hypoxic/hypercapnic respiratory failure: 2/2 COPD/asthma -CXR with COPD changes, no acute findings -required BIpap initially, now on room air *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 Sandra -ppx: Lovenox full code Medical - PN: Qual - VTE Deep Vein Thrombosis/Pulmonary Embolism Present on Admission: No
[2019-04-27] MEDS ORDERED: ALPRAZolam 0.5 MG TABLET PO PRN ×2 (08:25→14:29)
[2019-04-27] MEDS ORDERED: guaiFENesin 600 MG TAB.SR.12H PO SCH (09:00)
[2019-04-27] MEDS ORDERED: guaiFENesin 600 MG TAB.SR.12H PO PRN (09:31)
[2019-04-27] MEDS: ENOXAPARIN 40 MG/0.4 ML SYRINGE SQ SCH (09:39)
[2019-04-27] MEDS: DULoxetine 30 MG CAPSULE PO SCH (09:39)
[2019-04-27] MEDS: FLUoxetine HCL 20 MG CAPSULE PO SCH (09:40)
[2019-04-27] MEDS: HCTZ PO SCH (09:40)
[2019-04-27] MEDS: TELMISARTAN PO SCH (09:40)
[2019-04-27] MEDS: TIMOLOL 0.25% OPHTH DROPS BOTTLE 5ML OU SCH (09:41)
[2019-04-27] MEDS: LEVOFLOXACIN 500 MG/100 ML BAG IV SCH (09:42)
--- NOTE | 2019-04-27 10:08 | Discharge Summary ---
Medical - DS: Prov Patient information: Note initiated : 04/27/19 at 10:04 am Service Date, if different from initiated Date: [] Patient: Jaiden Acosta 88 y/o F admitted on 04/25/19 for Shortness of breath. Chief Complaint: [] Date of admission: 04/25/19 16:45 Discharge date: 04/28/19 Primary care physician: Iftikhar Rios MD Consults: 04/25/19 Consult to Physician [CONS] Stat Comment: Consulting Provider: Boone Corea Reason For Exam: Physician to Consult Medical - DS: Meds - Discharge Medications Prescriptions: predniSONE [Prednisone] 40 mg PO QAMCC #1 tab Active and Home Medications: Home Medications Albuterol Sulfate [Ventolin] 2 puff INH Q4-6HP PRN #1 inhaler 01/07/18 [Rx Confirmed 04/25/19 Last Taken Unknown] Ipratropium/Albuterol [Duoneb] 3 ml NEB Q4HP PRN #30 ampul.neb 01/23/19 [Rx Confirmed 04/25/19 Last Taken Unknown] guaiFENesin/CODEINE [Robitussin AC] 10 ml PO Q4HP PRN #120 oral.robert 01/23/19 [Rx Confirmed 04/25/19 Last Taken Unknown] ALPRAZolam [Xanax] 1 - 1.5 tab PO HSP PRN 04/25/19 [History Confirmed 04/25/19 Last Taken 04/24/19] Ascorbic Acid [Vitamin C] 1,000 mg PO TID 04/25/19 [History Confirmed 04/25/19 Last Taken 04/24/19] Bimatoprost [Lumigan] 1 drp OS HS 04/25/19 [History Confirmed 04/25/19 Last Taken 04/24/19] DULoxetine HCL [Cymbalta] 60 mg PO DAILY 04/25/19 [History Confirmed 04/25/[address] Taken 04/24/19] FLUoxetine HCL [Fluoxetine HCl] 1 cap PO DAILY 04/25/19 [History Confirmed 04/25/19 Last Taken 04/24/19] Ibuprofen [Advil] 400 mg PO DAILYP PRN 04/25/19 [History Confirmed 04/25/19 Last Taken Unknown] Imipramine [Tofranil] 1 tab PO HS 04/25/19 [History Confirmed 04/25/19 Last Taken 04/24/19] Levothyroxine [Synthroid] 1 tab PO DAILY 04/25/19 [History Confirmed 04/25/19 Last Taken 04/24/19] Pramipexole [Mirapex] 4 tab PO DAILY 04/25/19 [History Confirmed 04/25/19 Last Taken 04/24/19] Timolol Maleate [Timoptic] 1 drp OS DAILY 04/25/19 [History Confirmed 04/25/19 Last Taken 04/24/19] Telmisartan/Hydrochlorothiazid [Telmisartan-Hctz 80-12.5 mg Tb] 1 each PO DAILY 04/26/19 [History Confirmed 04/26/19 Last Taken 04/24/19 08:00] Medical - DS: Hosp Hospital Course: Ms. Acosta is a 88 year old F History is difficult obtain as patient is currently on BiPAP but per the staffing notes and what patient was able to relay. Sounds like she has had shortness of breath worsening for past 3 days. She was found to have oxygen saturations of 62% on room air. She denied a cough to me but per note she had a cough with some congestion. Denied fever. She is never been a smoker but she is been a exposed to secondhand smoke as a child and throughout her working years. Sounds like she uses a CPAP machine at night. She did have PFTs done by Dr. Sandra last fall which were reversible consistent with asthma but per his note also could be consistent with COPD. She does admit to wearing oxygen day and night at 2.5 L. In the ER she got multiple breathing treatments including continuous nebulizers with improvement. She is also placed on BiPAP for hypoxia and hypercapnic respiratory failure and is showing improvement. Laboratory work-up unremarkable except for the respiratory acidosis on ABG. Chest x-ray unremarkable. Also complains of dysuria. 04/26 Off BiPAP now on nasal cannula. Has occasional cough. Shortness of breath improving this still feels tight. Sitting up in chair. 04/27 Doing much better today. Is on room air at this time. Still has cough and occasional bringing up phlegm. 04/28 No events or issues overnight. Patient on room air. 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 on telmisartan/hctz at home *Depression/anxiety: *Mild Cognitive impairment: SLUMS=21 on outpt test Discharge diagnosis: Acute exacerbation COPD hypoxic hypercapnic respiratory failure Secondary discharge diagnosis: UTI hypertension depression anxiety mild cognitive impairment - Time Spent with Patient Total time spent providing and/or coordinating discharge services: Greater than 30 minutes Medical - DS: Exam - Constitutional Vitals: Vital Signs Temp Pulse Pulse Resp BP BP Pulse Ox 04/27/19 08:11 21 04/27/19 07:12 20 148/66 04/27/19 07:11 90 21 04/27/19 06:01 86 19 138/64 95 04/27/19 04:01 97.1 F 84 19 133/57 93 04/27/19 02:56 84 18 92 04/27/19 02:45 84 19 123/51 123/51 92 04/27/19 02:00 83 22 161/71 94 04/27/19 00:00 97.7 F 84 20 130/58 94 04/26/19 23:40 87 19 95 04/26/19 22:11 25 H 151/64 04/26/19 22:10 151/64 04/26/19 22:00 20 184/88 04/26/19 20:01 97 F 81 17 170/75 92 04/26/19 19:05 84 94 04/26/19 18:50 100 04/26/19 18:46 86 19 177/73 100 04/26/19 18:42 90 21 198/90 100 04/26/19 18:09 91 H 17 04/26/19 16:52 60 16 170/95 94 04/26/19 16:01 98.6 F 90 16 177/79 95 04/26/19 14:01 22 168/78 98 04/26/19 13:45 82 98 H 04/26/19 12:30 98 04/26/19 12:12 25 H 04/26/19 12:01 22 157/75 Intake and Output 04/26/19 04/27/19 04/27/19 21:59 05:59 13:59 Intake Total 490 Output Total 475 126 1 Balance 15 Intake: Oral 490 Output: Void Amount 475 125 # of times incontinent of urine 1 1 Other: Meal Dinner Percent of Meal Consumed 25% Feeding Ability Independent Urine Appearance Clear Clear Urine Color Pale Straw Bright Yellow Urine Odor Normal Normal Weight 47.718 kg Medical - DS: Data Labs on day of discharge: Preliminary micro results at discharge 04/26/19 18:30 Gram Stain - Preliminary Sputum - Induced 04/25/19 12:52 Blood Culture - Preliminary Blood 04/25/19 13:01 Blood Culture - Preliminary Blood 04/25/19 13:40 Urine Culture - Preliminary Urine - Lee Gram negative bacillus Medical - DS: A/P - Patient/Caregiver Discharge Instructions Activity: increase activity as tolerated Diet: Regular Diet Prescriptions: predniSONE [Prednisone] 40 mg PO [facility] #1 tab - Follow up Plan Follow up with: Iftikhar Rios MD [Primary Care Provider] - Arie Sandra [Referring] - Disposition: Home, Self-Care Prognosis: Fair Rehab Potential: Fair Overall status at discharge: patient is back to baseline Medical - DS: Qual - VTE Deep Vein Thrombosis/Pulmonary Embolism Present on Admission: No
[2019-04-27] MEDS ORDERED: ENALAPRILAT 1.25 MG/ML VIAL IV PRN (14:29)
[2019-04-27] MEDS ORDERED: ONDANSETRON 4 MG/2 ML VIAL IV PRN (14:29)
[2019-04-27] MEDS ORDERED: DEXTROSE 31 GM ORAL.SUSP PO PRN (14:29)
[2019-04-27] MEDS ORDERED: POTASSIUM CHLORIDE 40 MEQ in DEXTROSE 5% IN WATER 500 ML IV PRN (14:29)
[2019-04-27] MEDS ORDERED: MAGNESIUM SULFATE 2 GM/50 ML BAG IV PRN (14:29)
[2019-04-27] MEDS ORDERED: DEXTROSE 50% 50 ML VIAL IV PRN (14:29)
[2019-04-27] MEDS ORDERED: IPRATROPIUM/ALBUTEROL 3 ML AMPUL.NEB NEB PRN (14:29)
[2019-04-27] MEDS ORDERED: SENNOSIDES 1 TABLET PO PRN (14:29)
[2019-04-27] MEDS ORDERED: POTASSIUM CHLORIDE 20 MEQ TABLET PO PRN ×2 (14:29)
[2019-04-27] MEDS ORDERED: POLYETHYLENE GLYCOL 3350 17 GM PACKET PO PRN (14:29)
[2019-04-27] MEDS: predniSONE 20 MG TABLET PO SCH (16:33)
[2019-04-27] MEDS ORDERED: predniSONE 20 MG TABLET PO SCH (17:30)
[2019-04-27] MEDS: guaiFENesin 600 MG TAB.SR.12H PO SCH (20:33)
[2019-04-27] MEDS ORDERED: IMIPRAMINE 25 MG TABLET PO SCH (21:00)
[2019-04-27] MEDS ORDERED: PRAMIPEXOLE 1 MG TABLET PO SCH (21:00)
[2019-04-27] MEDS ORDERED: BIMATOPROST EYE OS SCH (21:00)
[2019-04-27] MEDS ORDERED: PRAMIPEXOLE 0.25 MG TABLET PO SCH (21:00)
[2019-04-28] MEDS: hydrALAZINE 20 MG/ML VIAL IV PRN (03:50)
[2019-04-28] MEDS: ACETAMINOPHEN 325 MG TABLET PO PRN (07:27)
[2019-04-28] MEDS ORDERED: LEVOTHYROXINE 50 MCG TABLET PO SCH (07:30)
[2019-04-28] MEDS: IPRATROPIUM/ALBUTEROL 3 ML AMPUL.NEB NEB SCH (07:49)
[2019-04-28] MEDS: BUDESONIDE 0.5 MG/2 ML AMPUL.NEB NEB SCH (07:49)
[2019-04-28] MEDS: predniSONE 20 MG TABLET PO SCH (08:26)
[2019-04-28] MEDS: INSULIN LISPRO 1 UNIT/0.01 ML UNIT SQ SCH (08:27)
[2019-04-28] MEDS: guaiFENesin 600 MG TAB.SR.12H PO SCH (08:27)
[2019-04-28] MEDS: 0.9 % SODIUM CHLORIDE 10 ML SYRINGE IV SCH (08:27)
[2019-04-28] MEDS ORDERED: ENOXAPARIN 40 MG/0.4 ML SYRINGE SQ SCH (09:00)
[2019-04-28] MEDS ORDERED: FLUoxetine HCL 20 MG CAPSULE PO SCH (09:00)
[2019-04-28] MEDS ORDERED: LEVOFLOXACIN 500 MG/100 ML BAG IV SCH (09:00)
[2019-04-28] MEDS ORDERED: TIMOLOL 0.25% OPHTH DROPS BOTTLE 5ML OU SCH (09:00)
[2019-04-28] MEDS ORDERED: TELMISARTAN PO SCH (09:00)
[2019-04-28] MEDS ORDERED: DULoxetine 30 MG CAPSULE PO SCH (09:00)
[2019-04-28] MEDS ORDERED: HCTZ PO SCH (09:00)
== END 2019-04-28 12:00 | disposition home or self-care (01) | DRG 189 ==
LOC: ED 12:15 → ICU 16:45 → MEDSUR 04-27 14:41
PROVIDERS: ADMIT Internal Medicine; ATTEND Internal Medicine

== ENCOUNTER 2020-06-18 12:14 | Inpatient (IN) ==
[2020-06-18] MEDS ORDERED: methylPREDNISolone SOD SUCC 125 MG/2 ML VIAL IV ONE (14:25)
[2020-06-18] MEDS ORDERED: cefTRIAXone 1 GM VIAL IV ONE (14:25)
[2020-06-18] MEDS ORDERED: IPRATROPIUM/ALBUTEROL 3 ML AMPUL.NEB NEB ONE ×2 (14:25→16:21)
--- NOTE | 2020-06-18 14:40 | Emergency Department Note ---
SOB HPI General Chief Complaint: Shortness of Breath/Dyspnea Stated Complaint: SOB Time Seen by Provider: 06/18/20 12:28 Source: patient Mode of arrival: ambulatory Limitations: no limitations History of Present Illness HPI Narrative: Narrative: Presents to room T1 for evaluation of progressive cough and shortness of breath. The patient has a past medical history of asthma with COPD. The patient reports that over the last 2 to 3 days she has had worsening cough with sputum production as well as shortness of breath. She denies any fevers or shaking chills. No night sweats. No chest pain. She denies any nausea or vomiting. She states that she has not been exposed to Covid that she is aware of. She denies any Covid vaccination. Related Data Home Medications Medication Instructions Recorded Confirmed ascorbic acid (vitamin C) 1,000 mg PO TID 04/25/19 06/17/20 bimatoprost 1 drp OS HS 04/25/19 06/17/20 duloxetine 60 mg PO DAILY 04/25/19 06/17/20 ibuprofen 400 mg PO DAILYP PRN 04/25/19 06/17/20 imipramine HCl 1 tab PO HS 04/25/19 06/17/20 levothyroxine 1 tab PO DAILY 04/25/19 06/17/20 pramipexole 4 tab PO DAILY 04/25/19 06/17/20 timolol maleate 1 drp OS DAILY 04/25/19 06/17/20 telmisartan-hydrochlorothiazid 1 each PO DAILY 04/26/19 06/17/20 cholecalciferol (vitamin D3) PO QDAY 04/13/20 06/17/20 fluticasone propionate 115 2 puff INHALATION BID 04/13/20 06/17/20 mcg-salmeterol 21 mcg/actuation HFA inhaler guaifenesin PO 04/13/20 06/17/20 tiotropium bromide 2.5 2 puff INHALATION QDAY 04/13/20 06/17/20 mcg/actuation mist for inhalation fexofenadine 180 mg tablet 180 mg PO BID PRN tab 05/20/20 06/17/20 alprazolam 2 mg tablet 2 mg PO QDAY 06/17/20 06/17/20 fluoxetine 40 mg capsule 40 mg PO QDAY 06/17/20 06/17/20 prednisone 20 mg tablet 20 mg PO QDAY 06/17/20 06/17/20 triamcinolone acetonide 55 mcg 1 spray INTRANASAL QDAY 06/17/20 06/17/20 nasal spray aerosol Previous Rx's Medication Instructions Recorded albuterol sulfate 2 puff INH Q4-6HP PRN #1 inhaler 01/07/18 ipratropium-albuterol 3 ml NEB Q4HP PRN #30 ampul.neb 01/23/19 phenazopyridine [Pyridium] 200 mg PO TID PRN #6 tab 04/23/20 hydroxyzine HCl 50 mg tablet 10 mg PO QHS PRN #30 tab 06/14/20 Allergies Allergy/AdvReac Type Severity Reaction Status Date / Time ciprofloxacin [From Cipro] Allergy Unknown Unknown Unverified 06/17/20 11:57 milk Allergy Unknown unknown Verified 06/14/20 13:04 Sugars, Metabolically Active Allergy Unknown Unknown Verified 06/14/20 13:04 Tomato Allergy Unknown Unknown Verified 06/14/20 13:04 egg AdvReac Intermediate Gastrointestinal Verified 06/14/20 13:04 Upset lactase [From Dairy Aid] AdvReac Intermediate Gastrointestinal Verified 06/14/20 13:04 Upset codeine [CODEINE] AdvReac Mild VOMITING Verified 06/14/20 13:04 Review of Systems ROS ROS Narrative: Narrative: All systems ED: reviewed and negative except as stated. 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) Pruritus of skin (Chronic) Bipolar disorder (Chronic) Anemia (Chronic) Restless legs (Chronic) Hypothyroidism (Chronic) Pulmonary infiltrate on radiologic exam (Chronic) Hypocalcemia (Chronic) Essential hypertension (Chronic) Carotid artery stenosis (Chronic) Prediabetes (Chronic) History of open reduction and internal fixation (ORIF) procedure (Chronic) History of cataract surgery (Chronic) History of hysterectomy (Chronic) History of ankle surgery (Chronic) History of total bilateral knee replacement (Chronic) History of knee surgery (Chronic) History of cholecystectomy (Chronic) History of appendectomy (Chronic) History of colonoscopy (Chronic 09/29/15) Congestion of upper respiratory tract (Chronic) Cough (Chronic) Wheezing (Chronic) Joint swelling (Chronic) Joint pain (Chronic) Itching (Chronic) Dry skin (Chronic) Sleep disturbance (Chronic) Rhonchi (Chronic) Decreased breath sounds (Chronic) Hypercapnic respiratory failure (Chronic) Pneumonia (Chronic) Ischemia (Chronic) Dyspnea (Chronic) Difficulty walking (Chronic) Chronically ill (Chronic) Gait difficulty (Chronic) BMI 20.0-20.9, adult (Chronic) Pain in left knee (Chronic) Cellulitis of lower extremity (Chronic) Right foot pain (Chronic) Depression (Chronic) Glaucoma (Chronic) Urinary tract infection (Chronic) Medical History Acute exacerbation of chronic obstructive airways disease Anemia Anxiety Asthma exacerbation, mild Asthma with exacerbation Asthma-chronic obstructive pulmonary disease overlap syndrome Bipolar disorder BMI 20.0-20.9, adult Carotid artery stenosis Cellulitis of lower extremity Chronically ill Congestion of upper respiratory tract COPD (chronic obstructive pulmonary disease) Cough Decreased breath sounds Depression Difficulty walking Dry skin Dyspnea Essential hypertension Gait difficulty Glaucoma Hypercapnic respiratory failure Hypocalcemia Hypothyroidism Ischemia Itching Joint pain Joint swelling Left lower lobe pulmonary infiltrate Pain in left knee Pneumonia Prediabetes Pruritus of skin Pulmonary infiltrate on radiologic exam Respiratory failure with hypoxia and hypercapnia Restless legs Rhonchi Right foot pain Sleep disturbance SOB (shortness of breath) Wheezing Surgical History History of ankle surgery right foot History of appendectomy History of cataract surgery History of cholecystectomy History of colonoscopy (09/29/15) History of hysterectomy History of knee surgery History of open reduction and internal fixation (ORIF) procedure femur rodding History of total bilateral knee replacement Family History Mother , 97 Cancer Hypertension Father , 97 Bipolar affect, depressed Cancer Hypertension Sister Bipolar affect, depressed Social History Smoking Status: Never smoker Alcohol Intake Frequency: a few times a month Substance Use: does not use Exam Narrative Narrative: Narrative: General Limitations: no limitations General appearance: Present alert and in no apparent distress Head Head: Present atraumatic, normocephalic and normal inspection Eye Eye: Present normal appearance and EOMI; Absent conjunctival injection ENT ENT: Present normal exam and mucous membranes moist Neck Neck: Present normal inspection and trachea midline Respiratory Respiratory: Present rales/crackles and wheezes; Absent respiratory distress Cardiovascular Cardiovascular: Present regular rate, normal rhythm and normal heart sounds Adbominal Abdominal: Present soft; Absent distention, tenderness, guarding and rebound Extremities Extremities: Present normal inspection; Absent tenderness Back Back: Present normal inspection; Absent tenderness Neurological Neurological: Present alert, oriented X3 and CN II-XII intact; Absent motor sensory deficit Psychiatric Psychiatric: Present normal affect and normal mood Skin Skin: Present warm (WNL) and dry; Absent rash Course Vital Signs Vital signs: Vital Signs Temperature 97.4 F 06/18/20 12:14 Pulse Rate 107 H 06/18/20 12:14 Respiratory Rate 24 H 06/18/20 12:14 Pulse Oximetry (%) 89 L 06/18/20 12:14 Temperature 97.4 F 06/18/20 12:14 Pulse Rate 80 06/18/20 16:31 Respiratory Rate 24 H 06/18/20 12:14 Blood Pressure 160/76 06/18/20 16:31 Pulse Oximetry (%) 97 06/18/20 16:31 MDM MDM Narrative Medical decision making narrative: Narrative: Lab Data Lab results reviewed: Yes I reviewed the patient's lab results. Result diagrams: 06/18/20 14:44 06/18/20 14:44 Labs: Lab Results 06/18/20 06/18/20 06/18/20 Range/Units 14:44 14:44 14:44 WBC 6.1 (4.5-11.0) K/mcL RBC 3.83 L (4.00-5.20) M/mcL Hgb 12.1 (12.0-15.0) g/dL Hct 36.6 (36.0-48.0) % MCV 95.6 (80.0-100.0) fL MCH 31.6 (26.0-34.0) pg MCHC 33.1 (31.0-36.0) g/dL RDW 12.9 (11.5-14.5) % Plt Count 261 (140-440) K/mcL MPV 9.7 (7.4-10.4) fL Neut % (Auto) 56.0 (38.0-78.0) % Lymph % (Auto) 11.2 L (15.0-49.0) % [place] % (Auto) 10.1 (1.0-12.0) % Eos % (Auto) 22.5 H (0.0-7.0) % Baso % (Auto) 0.2 (0.0-2.0) % Lymph # (Auto) 0.68 L (1.50-4.80) K/mcL [place] # (Auto) 0.61 (0.10-0.90) K/mcL Eos # (Auto) 1.36 H (0.00-0.70) K/mcL Baso # (Auto) 0.01 (0.00-0.20) K/mcL Absolute Neutrophils 3.39 (1.80-8.00) K/mcL VBG Lactic Acid 0.8 (0.5-2.0) mmol/L Sodium 135 (133-145) mmol/L Potassium 3.9 (3.3-5.1) mmol/L Chloride 99 (96-108) mmol/L Carbon Dioxide 25 (22-30) mmol/L Anion Gap 11.0 (8.0-16.0) BUN 11 (8-23) mg/dL Creatinine 0.8 (0.6-1.1) mg/dL GFR Calculation 66 Glucose 85 (70-105) mg/dL Calcium 9.2 (8.6-10.4) mg/dL Total Bilirubin 0.4 (0.1-1.0) mg/dL AST 31 (<32) U/L ALT 21 (<40) U/L Alkaline Phosphatase 129 H (39-117) U/L Troponin T (<0.03) ng/mL NT-Pro-B Natriuret Pep 780.6 H (<450.0) pg/mL Total Protein 6.8 (5.9-8.4) gm/dL Albumin 4.2 (3.2-5.2) gm/dL Globulin 2.6 (2.2-3.7) gm/dL Albumin/Globulin Ratio 1.6 (1.0-2.3) 04/16/21 Range/Units 14:44 WBC (4.5-11.0) K/mcL RBC (4.00-5.20) M/mcL Hgb (12.0-15.0) g/dL Hct (36.0-48.0) % MCV (80.0-100.0) fL MCH (26.0-34.0) pg MCHC (31.0-36.0) g/dL RDW (11.5-14.5) % Plt Count (140-440) K/mcL MPV (7.4-10.4) fL Neut % (Auto) (38.0-78.0) % Lymph % (Auto) (15.0-49.0) % [place] % (Auto) (1.0-12.0) % Eos % (Auto) (0.0-7.0) % Baso % (Auto) (0.0-2.0) % Lymph # (Auto) (1.50-4.80) K/mcL [place] # (Auto) (0.10-0.90) K/mcL Eos # (Auto) (0.00-0.70) K/mcL Baso # (Auto) (0.00-0.20) K/mcL Absolute Neutrophils (1.80-8.00) K/mcL VBG Lactic Acid (0.5-2.0) mmol/L Sodium (133-145) mmol/L Potassium (3.3-5.1) mmol/L Chloride (96-108) mmol/L Carbon Dioxide (22-30) mmol/L Anion Gap (8.0-16.0) BUN (8-23) mg/dL Creatinine (0.6-1.1) mg/dL GFR Calculation Glucose (70-105) mg/dL Calcium (8.6-10.4) mg/dL Total Bilirubin (0.1-1.0) mg/dL AST (<32) U/L ALT (<40) U/L Alkaline Phosphatase (39-117) U/L Troponin T < 0.01 (<0.03) ng/mL NT-Pro-B Natriuret Pep (<450.0) pg/mL Total Protein (5.9-8.4) gm/dL Albumin (3.2-5.2) gm/dL Globulin (2.2-3.7) gm/dL Albumin/Globulin Ratio (1.0-2.3) Radiology Data Radiology results reviewed: Yes I reviewed the patient's radiology results. EKG Data EKG #1: EKG attestation: Yes I reviewed and interpreted this EKG., Yes There are no EKG findings of acute coronary syndrome and Yes This EKG will be read by tack welder EKG results narrative: Normal sinus rhythm, rate 82, incomplete left bundle branch block which is unchanged compared EKG dated 04/25/2019 Rhythm Strip Data Rhythm Strip Rate: 84 Interpretation: Normal sinus rhythm Pulse Oximetry Data Pulse Ox %: 88 Interpretation: Hypoxia, room air CC TIME Critical Care Time Critical Care Time: Yes Total Critical Care Time: 30 Attestation: Approximately 30 minutes of critical care time was used in order to assess and manage the high probability of imminent or life threatening deterioration which required my highest level of preparedness and interventions with frequent patient assessments. This time is excluding time spent on separately billable procedures. Patient presented for evaluation of shortness of breath cough wheezing and rhonchi. Patient's chest x-ray is unremarkable. EKG shows no acute injury or ischemia. Labs are unremarkable except for the BNP which is slightly elevated. The patient received a DuoNeb treatment with IV Solu-Medrol. On repeat assessment her oxygen saturations noted to be 88% on room air. She continued to have increased wheezing and work of breathing. She received a second nebulized treatment paring her wheeze somewhat however she continued to be hypoxic. An ABG was obtained shows no evidence of respiratory acidosis or CO2 retention. The patient reports to me that she has worn oxygen at home in the past but currently does not. The patient continues to have wheezing, hypoxia and increased work of breathing I think she will benefit from admission. I have paged the admitting hospitalist, Dr. Cannon. Discharge Plan Patient/Caregiver Discharge Instructions Pt seen by SOX ANALYST/PA only: No Clinical Impression: Chronic obstructive pulmonary disease with (acute) exacerbation, Hypoxia Patient Disposition: Xfer As Inpt ([facility]) Follow up with: Iftikhar Rios MD [Primary Care Provider] - Prescriptions: No Action hydroxyzine HCl 50 mg tablet 10 mg PO QHS PRN (Reason: anxiety) Qty: 30 RF: 0 Advair HFA 115-21 mcg/actuation HFA aerosol inhaler 2 puff INHALATION BID RF: 0 guaifenesin PO RF: 0 Spiriva Respimat 2.5 mcg/actuation mist 2 puff INHALATION QDAY RF: 0 cholecalciferol (vitamin D3) PO QDAY RF: 0 fexofenadine [Yari Allergy] 180 mg tablet 180 mg PO BID PRNRF: 0 alprazolam 2 mg tablet 2 mg PO QDAY RF: 0 fluoxetine 40 mg capsule 40 mg PO QDAY RF: 0 triamcinolone acetonide [Nasacort] 55 mcg aerosol,spray 1 spray intranasal QDAY RF: 0 prednisone 20 mg tablet 20 mg PO QDAY RF: 0 albuterol sulfate 1 PUFF inhaler 2 puff INH Q4-6HP PRN (Reason: Wheezing) Qty: 1 RF: 0 ipratropium-albuterol 3 ML solution for nebulization 3 ml NEB Q4HP PRN (Reason: Wheezing) Qty: 30 RF: 0 imipramine HCl 50 MG tablet 1 tab PO HS RF: 0 timolol maleate 5 ML drops 1 drp OS DAILY RF: 0 levothyroxine 50 MCG tablet 1 tab PO DAILY RF: 0 pramipexole 0.25 MG tablet 4 tab PO DAILY RF: 0 duloxetine 60 MG capsule,delayed release(DR/EC) 60 mg PO DAILY RF: 0 bimatoprost 2.5 ML drops 1 drp OS HS RF: 0 ascorbic acid (vitamin C) 1,000 MG tablet 1,000 mg PO TID RF: 0 ibuprofen 200 MG capsule 400 mg PO DAILYP PRN (Reason: Pain) RF: 0 telmisartan-hydrochlorothiazid 1 EACH tablet 1 each PO DAILY RF: 0 phenazopyridine [Pyridium] 200 mg tablet 200 mg PO TID PRN (Reason: pain) Qty: 6 RF: 0
--- NOTE | 2020-06-18 15:07 | XRay Report ---
CLINICAL INFORMATION: soa COMPARISON: 04/25/2019 FINDINGS: Heart size, mediastinum and pulmonary vessels are unremarkable. The lung volumes are elevated suggesting chronic bronchitis or asthma. Scattered small densely calcified granulomas in the perihilar region seen - as before. There are no infiltrates or new pulmonary abnormalities. No effusions. IMPRESSION: Mild chronic bronchitis. No acute disease Interpreted and Authenticated by: Brent Antonio 06/18/20
[2020-06-18 15:43] LABS: Basophils # (Auto) 0.01 K/mcL (0.00-0.20); Basophils % (Auto) 0.2 % (0.0-2.0); Eosinophils # (Auto) 1.36 K/mcL (0.00-0.70); Eosinophils % (Auto) 22.5 % (0.0-7.0); Hematocrit 36.6 % (36.0-48.0); Hemoglobin 12.1 g/dL (12.0-15.0); Lymphocytes # (Auto) 0.68 K/mcL (1.50-4.80); Lymphocytes % (Auto) 11.2 % (15.0-49.0); Mean Cell Volume 95.6 fL (80.0-100.0); Mean Corpuscular HGB Conc 33.1 g/dL (31.0-36.0); Mean Platelet Volume 9.7 fL (7.4-10.4); Monocytes # (Auto) 0.61 K/mcL (0.10-0.90); Monocytes % (Auto) 10.1 % (1.0-12.0); Platelet Count 261 K/mcL (140-440); RBC 3.83 M/mcL (4.00-5.20); Red Cell Distribution Width 12.9 % (11.5-14.5); WBC 6.1 K/mcL (4.5-11.0)
[2020-06-18 15:56] LABS: proBNP 780.6 pg/mL (<450.0)
[2020-06-18 15:57] LABS: ALT/SGPT 21 U/L (<40); AST/SGOT 31 U/L (<32); Albumin 4.2 gm/dL (3.2-5.2); Albumin/Globulin Ratio 1.6 (1.0-2.3); Alkaline Phosphatase 129 U/L (39-117); Bilirubin,Total 0.4 mg/dL (0.1-1.0); Blood Urea Nitrogen 11 mg/dL (8-23); Calcium 9.2 mg/dL (8.6-10.4); Carbon Dioxide 25 mmol/L (22-30); Chloride 99 mmol/L (96-108); Globulin 2.6 gm/dL (2.2-3.7); Glomerular Filtration Rate 66; Glucose 85 mg/dL (70-105)
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
--- NOTE | 2020-06-18 19:30 | Emergency Department Note ---
ED Note Addendum Note Addendum: I assumed care from Dr. Keith at the change of shift. I evaluated the patient in person. She is resting comfortably and awakens to verbal stimuli and is able to speak in full sentences with minimally increased work of breathing while on supplemental oxygen via nasal cannula. She is agreeable with the plan for admission. I discussed the patient's history examination and diagnostic findings with Dr. Hull, who agrees with the plan of care and accepts admission.
[2020-06-18] MEDS ORDERED: POLYETHYLENE GLYCOL 3350 17 GM PACKET PO PRN (20:31)
[2020-06-18] MEDS ORDERED: MAGNESIUM SULFATE 2 GM/50 ML BAG IV PRN (20:31)
[2020-06-18] MEDS ORDERED: MELATONIN 3 MG TABLET PO PRN (20:31)
[2020-06-18] MEDS ORDERED: POTASSIUM CHLORIDE 20 MEQ PACKET PO PRN (20:31)
[2020-06-18] MEDS ORDERED: ACETAMINOPHEN 650 MG/65 ML BAG IV PRN (20:31)
[2020-06-18] MEDS ORDERED: POTASSIUM CHLORIDE 40 MEQ in DEXTROSE 5% IN WATER 500 ML IV PRN (20:31)
[2020-06-18] MEDS ORDERED: ONDANSETRON 4 MG ODT TABLET SL PRN (20:31)
[2020-06-18] MEDS ORDERED: ONDANSETRON 4 MG/2 ML VIAL IV PRN (20:31)
[2020-06-18] MEDS ORDERED: LEVOFLOXACIN 750 MG/150 ML BAG IV SCH (20:31)
[2020-06-18] MEDS ORDERED: BISACODYL 10 MG SUPP.RECT PR PRN (20:31)
[2020-06-18] MEDS: IPRATROPIUM/ALBUTEROL 3 ML AMPUL.NEB NEB SCH ×2 (20:53→23:49)
[2020-06-18] MEDS: BUDESONIDE 0.5 MG/2 ML AMPUL.NEB NEB SCH (20:57)
[2020-06-18] MEDS: HEPARIN 5,000 UNIT/ML VIAL SQ SCH (21:37)
[2020-06-18] MEDS: 0.9 % SODIUM CHLORIDE 10 ML SYRINGE IV SCH (21:37)
[2020-06-18] MEDS: DOCUSATE SODIUM 100 MG CAPSULE PO SCH (21:37)
[2020-06-18] MEDS: SENNOSIDES/DOCUSATE SODIUM 1 TAB TABLET PO SCH (21:37)
[2020-06-18] MEDS: ACETAMINOPHEN 325 MG TABLET PO PRN (21:37)
[2020-06-19] MEDS: methylPREDNISolone SOD SUCC 125 MG/2 ML VIAL IV SCH ×4 (00:16→17:44)
[2020-06-19] MEDS: IPRATROPIUM/ALBUTEROL 3 ML AMPUL.NEB NEB SCH ×6 (03:43→23:13)
[2020-06-19] MEDS: 0.9 % SODIUM CHLORIDE 10 ML SYRINGE IV SCH ×3 (06:06→20:56)
[2020-06-19 06:57] LABS: Basophils # (Auto) 0 K/mcL (0.00-0.20); Basophils % (Auto) 0 % (0.0-2.0); Eosinophils # (Auto) 0 K/mcL (0.00-0.70); Eosinophils % (Auto) 0 % (0.0-7.0); Hematocrit 36.6 % (36.0-48.0); Hemoglobin 12.3 g/dL (12.0-15.0); Lymphocytes # (Auto) 0.42 K/mcL (1.50-4.80); Lymphocytes % (Auto) 12.5 % (15.0-49.0); Mean Cell Volume 94.6 fL (80.0-100.0); Mean Corpuscular HGB Conc 33.6 g/dL (31.0-36.0); Mean Platelet Volume 10.2 fL (7.4-10.4); Monocytes # (Auto) 0.07 K/mcL (0.10-0.90); Monocytes % (Auto) 2.1 % (1.0-12.0); Neutrophils % (Auto) 85.4 % (38.0-78.0); Platelet Count 257 K/mcL (140-440); RBC 3.87 M/mcL (4.00-5.20); Red Cell Distribution Width 12.5 % (11.5-14.5); WBC 3.4 K/mcL (4.5-11.0)
[2020-06-19 07:30] LABS: ALT/SGPT 21 U/L (<40); AST/SGOT 28 U/L (<32); Albumin/Globulin Ratio 1.3 (1.0-2.3); Alkaline Phosphatase 127 U/L (39-117); Bilirubin,Direct < 0.2 mg/dL (0-0.3); Bilirubin,Total 0.2 mg/dL (0.1-1.0); Blood Urea Nitrogen 18 mg/dL (8-23); Calcium 8.8 mg/dL (8.6-10.4); Carbon Dioxide 21 mmol/L (22-30); Chloride 96 mmol/L (96-108); Globulin 3.1 gm/dL (2.2-3.7); Glomerular Filtration Rate 66; Glucose 157 mg/dL (70-105); Lactate Dehydrogenase 278 U/L (135-225); Phosphorous 4.9 mg/dL (2.5-4.5); Triglycerides 49 mg/dL (<150); Uric Acid 7.5 mg/dL (2.5-8.0)
[2020-06-19] MEDS: BUDESONIDE 0.5 MG/2 ML AMPUL.NEB NEB SCH ×2 (07:51→19:43)
[2020-06-19] MEDS: MULTIVIT,THER IRON,CA,FA & MIN 1 TABLET PO SCH (09:42)
[2020-06-19] MEDS: HEPARIN 5,000 UNIT/ML VIAL SQ SCH ×2 (09:42→20:55)
[2020-06-19] MEDS: DOCUSATE SODIUM 100 MG CAPSULE PO SCH ×2 (09:42→20:56)
[2020-06-19] MEDS: cefTRIAXone 2 GM in DEXTROSE 5% IN WATER 50 ML IV SCH (09:43)
[2020-06-19 10:39] LABS: Erythrocyte Sedimentation Rate 24 mm/hr (0-20)
[2020-06-19] MEDS ORDERED: ALBUTEROL SULFATE 200 PUFF INHALER INH PRN (11:03)
[2020-06-19] MEDS ORDERED: hydrALAZINE 20 MG/ML VIAL IV PRN (11:05)
--- NOTE | 2020-06-19 11:05 | Internal Med Progress Note ---
SUBJECTIVE Subjective Patient information: Note initiated : 06/19/20 at 11:04 am Service Date, if different from initiated Date: [] Patient: Jaiden Acosta 89 y/o F admitted on 06/18/20 for Shortness of breath. Chief Complaint: [] Interval history: Ms. Acosta is a 89 year old F with a known history of asthma/hypereosinophilic pulmonary syndrome who follows up with Dr. Sandra and recently transition Dr. Emerson with pulmonology. She lives with her Buck and has been in her baseline state of health until 3 days prior to presentation started noticing URI symptoms. She started getting progressively short of breath, over the last 24 hours has not been able to move or function. She presents to the ER with significant dyspnea and almost gasping. Patient is requiring 4 L oxygen. Blood gas compensated with pH 7.4 Patient was started on bronchodilators/steroids with improvement in work of breathing. Subsequently hospital service was consulted At the time of evaluation patient is alert and oriented. She is unable to talk in full sentences. Patient continues to wheeze but endorses that she feels a lot better since presentation. She denies fever, shaking chills, productive sputum, diarrhea, dysuria, rash, exposure to sick contacts or Covid-like symptoms including loss of smell or taste. 06/19-patient doing well. No overnight events. Able to talk in near full sentences however desats to low 80s as soon with minimal conversation. E osinophilia resolved following steroids. White count 3.4, continue Rocephin. No overnight fever chills. Check peak flow rate. Systolics around 140s. Restart home medications including telmisartan. Constitutional Vitals: Vital Signs Temp Pulse Resp BP Pulse Ox 98 F 79 15 153/68 97 06/19/20 09:21 06/19/20 09:21 06/19/20 09:21 06/19/20 09:21 06/19/20 09:21 Period Temp Pulse Resp BP Sys/Mckeon Pulse Ox Last 24 Hr 97.3 F-98.3 F 74-107 12-24 130-187/66-114 88-100 Intake and Output 06/18/20 06/19/20 06/19/20 21:59 05:59 13:59 Intake Total 300 240 Output Total 2 2 1 Balance -2 298 239 Weight 49.895 kg Alert oriented Audible wheeze Labored breathing Anxious Intake & Output: Intake & Output 06/18/20 06/19/20 06/19/20 21:59 05:59 13:59 Intake Total 300 240 Output Total 2 2 1 Balance -2 298 239 Weight 49.895 kg Intake: Oral 300 240 Output: Void Amount 1 # of times incontinent of urine 2 2 Other: Meal Breakfast Percent of Meal Consumed 100% Urine Odor Strong # Voids 1 1 OBJ DATA Labs CBC & Chem 7: 06/19/20 05:19 06/19/20 05:19 Labs: Abnormal Lab Results 06/19/20 06/19/20 06/18/20 05:19 05:19 14:44 WBC 3.4 L RBC 3.87 L Neut % (Auto) 85.4 H Lymph % (Auto) 12.5 L Eos % (Auto) Lymph # (Auto) 0.42 L [place] # (Auto) 0.07 L Eos # (Auto) ESR 24 H Sodium 132 L Carbon Dioxide 21 L Glucose 157 H Phosphorus 4.9 H Alkaline Phosphatase 127 H 129 H Lactate Dehydrogenase 278 H C-Reactive Protein 2.80 H NT-Pro-B Natriuret Pep 780.6 H 06/18/20 14:44 WBC RBC 3.83 L Neut % (Auto) Lymph % (Auto) 11.2 L Eos % (Auto) 22.5 H Lymph # (Auto) 0.68 L [place] # (Auto) Eos # (Auto) 1.36 H ESR Sodium Carbon Dioxide Glucose Phosphorus Alkaline Phosphatase Lactate Dehydrogenase C-Reactive Protein NT-Pro-B Natriuret Pep Meds: Medications Acetaminophen (Acetaminophen 325 Mg Tablet) 650 mg PO Q4-6HP PRN; Protocol PRN Reason: Per Pain Protocol/Fever > 101 Last Admin: 06/18/20 21:37 Dose: 650 mg Documented by: Albuterol/Ipratropium (Ipratropium/Albuterol 3 Ml Ampul.Neb) 3 ml NEB Q4HRT [facility] Last Admin: 06/19/20 07:51 Dose: 3 ml Documented by: Bisacodyl (Bisacodyl 10 Mg Supp.Rect) 10 mg MO Q2-3DAYS PRN PRN Reason: Constipation Budesonide (Budesonide 0.5 Mg/2 Ml Ampul.Neb) 0.5 mg NEB Q12 [facility] Last Admin: 06/19/20 07:51 Dose: 0.5 mg Documented by: Docusate Sodium (Docusate Sodium 100 Mg Capsule) 100 mg PO BID [facility] Last Admin: 06/19/20 09:42 Dose: 100 mg Documented by: Heparin Sodium (Porcine) (Heparin 5,000 Unit/Ml Vial) 5,000 unit SQ Q12 [facility] Last Admin: 06/19/20 09:42 Dose: 5,000 unit Documented by: Potassium Chloride 40 meq/ (Dextrose) 520 mls @ 130 mls/hr IV UD PRN PRN Reason: K+ = or < 3.5 Acetaminophen (Ofirmev) 650 mg in 65 mls @ 130 mls/hr IV Q6HP PRN; Protocol PRN Reason: Per Pain Protocol/Fever > 101 Magnesium Sulfate (Magnesium Sulfate) 2 gm in 50 mls @ 50 mls/hr IV UD PRN PRN Reason: MG = or < 1.7 Ceftriaxone Sodium 2 gm/ (Dextrose) 50 mls @ 100 mls/hr IV Q24H [facility] Last Admin: 06/19/20 09:43 Dose: 100 mls/hr Documented by: Iron Carb/Multivit/[place]/Folic Acid (Multivit,Ther Iron,Ca,Fa & Min 1 Tablet) 1 tab PO DAILY [facility] Last Admin: 06/19/20 09:42 Dose: 1 tab Documented by: Melatonin (Melatonin 3 Mg Tablet) 3 mg PO HSP PRN PRN Reason: Insomnia Last Admin: 06/18/20 21:37 Dose: 3 mg Documented by: Methylprednisolone Sodium Succinate (Methylprednisolone Sod Succ 125 Mg/2 Ml Vial) 60 mg IV Q6 [facility] Last Admin: 06/19/20 06:06 Dose: 60 mg Documented by: Ondansetron HCl (Ondansetron 4 Mg Odt Tablet) 4 mg SL Q4-6HP PRN; Protocol PRN Reason: Nausea And Vomiting Ondansetron HCl (Ondansetron 4 Mg/2 Ml Vial) 4 mg IV Q4-6HP PRN; Protocol PRN Reason: Nausea And Vomiting Polyethylene Glycol (Polyethylene Glycol 3350 17 Gm Packet) 17 gm PO DAILYP PRN PRN Reason: Constipation Potassium Chloride (Potassium Chloride 20 Meq Packet) 40 meq PO DAILYP PRN PRN Reason: K+ < 3.5 Senna/Docusate Sodium (Sennosides/Docusate Sodium 1 Tab Tablet) 1 tab PO HS [facility] Last Admin: 06/18/20 21:37 Dose: Not Given Documented by: Sodium Chloride (0.9 % Sodium Chloride 10 Ml Syringe) 10 ml IV Q8 [facility] Last Admin: 06/19/20 06:06 Dose: 10 ml Documented by: A/P Narrative A/P Narrative: * AECOPD with underlying chronic asthma and acute bronchitis- Bronchodilator/IV steroid. peak flow rates. Supplemental oxygen * Acute hypoxic respiratory failure continue supplemental oxygen. 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 Dramatic resolution following steroid administration. Follow as an outpatient pulmonology * Anxiety disorder continue fluoxetine/Xanax * History of hypertension restart home dose ARB * Hypothyroid Continue thyroxine * Full code PLAN * Continue steroids/bronchodilators * Peak flow rate * Antibiotic coverage * Pre-existing medical condition management home medications * Discharge planning/PT OT nutrition support Time Spent With Patient Time: Total time spent is greater than 50% in coordination of care (as docume nted) at patient's floor/unit and/or counseling patient: QUALITY VTE Deep Vein Thrombosis/Pulmonary Embolism Present on Admission: No
[2020-06-19] MEDS: DULoxetine 30 MG CAPSULE PO SCH (12:16)
[2020-06-19] MEDS: TELMISARTAN 40 MG TABLET PO SCH (12:18)
[2020-06-19] MEDS: SPIRIVA RESPIMAT INH SCH (12:18)
[2020-06-19] MEDS: FLUoxetine HCL 20 MG CAPSULE PO SCH (14:39)
[2020-06-19] MEDS: PRAMIPEXOLE 1 MG TABLET PO SCH (20:55)
[2020-06-19] MEDS: ALPRAZolam 0.5 MG TABLET PO SCH (20:55)
[2020-06-19] MEDS: SENNOSIDES/DOCUSATE SODIUM 1 TAB TABLET PO SCH (20:55)
[2020-06-19] MEDS: NITROFURANTOIN SR 100 MG CAPSULE PO SCH (20:56)
[2020-06-19] MEDS ORDERED: traZODone HCL 50 MG TABLET PO PRN (22:30)
[2020-06-19] MEDS ORDERED: traZODone HCL 50 MG TABLET ONE (22:34)
[2020-06-20] MEDS: methylPREDNISolone SOD SUCC 125 MG/2 ML VIAL IV SCH ×3 (01:01→13:54)
[2020-06-20] MEDS: IPRATROPIUM/ALBUTEROL 3 ML AMPUL.NEB NEB SCH ×6 (05:29→22:02)
[2020-06-20] MEDS: 0.9 % SODIUM CHLORIDE 10 ML SYRINGE IV SCH ×3 (06:48→22:12)
[2020-06-20] MEDS: BUDESONIDE 0.5 MG/2 ML AMPUL.NEB NEB SCH ×2 (07:16→19:54)
[2020-06-20 07:23] LABS: Basophils # (Auto) 0.01 K/mcL (0.00-0.20); Basophils % (Auto) 0.1 % (0.0-2.0); Eosinophils # (Auto) 0 K/mcL (0.00-0.70); Eosinophils % (Auto) 0 % (0.0-7.0); Hematocrit 34.7 % (36.0-48.0); Hemoglobin 11.7 g/dL (12.0-15.0); Lymphocytes # (Auto) 0.53 K/mcL (1.50-4.80); Mean Cell Volume 94.3 fL (80.0-100.0); Mean Corpuscular HGB Conc 33.7 g/dL (31.0-36.0); Mean Platelet Volume 9.8 fL (7.4-10.4); Monocytes # (Auto) 0.45 K/mcL (0.10-0.90); Monocytes % (Auto) 4.3 % (1.0-12.0); Neutrophils % (Auto) 90.6 % (38.0-78.0); Platelet Count 263 K/mcL (140-440); RBC 3.68 M/mcL (4.00-5.20); Red Cell Distribution Width 12.7 % (11.5-14.5); WBC 10.6 K/mcL (4.5-11.0)
--- NOTE | 2020-06-20 07:24 | XRay Report ---
CLINICAL INFORMATION: Sob COMPARISON: 06/18/2020 FINDINGS: Heart size, mediastinum and pulmonary vessels are normal. Lungs are clear. Severe degeneration of both glenohumeral joints. Humeral head subluxation compatible with chronic rotator cuff tear/impingement noted IMPRESSION: No acute cardiopulmonary disease. Interpreted and Authenticated by: Brent Antonio 06/20/20
[2020-06-20 07:35] LABS: ALT/SGPT 18 U/L (<40); AST/SGOT 18 U/L (<32); Albumin 3.7 gm/dL (3.2-5.2); Albumin/Globulin Ratio 1.2 (1.0-2.3); Alkaline Phosphatase 117 U/L (39-117); Bilirubin,Direct < 0.2 mg/dL (0-0.3); Bilirubin,Total < 0.2 mg/dL (0.1-1.0); Blood Urea Nitrogen 23 mg/dL (8-23); Calcium 8.9 mg/dL (8.6-10.4); Carbon Dioxide 25 mmol/L (22-30); Chloride 98 mmol/L (96-108); Glomerular Filtration Rate 78; Glucose 173 mg/dL (70-105); Lactate Dehydrogenase 251 U/L (135-225); Phosphorous 2.7 mg/dL (2.5-4.5); Triglycerides 79 mg/dL (<150); Uric Acid 5.1 mg/dL (2.5-8.0)
[2020-06-20] MEDS: VITAMIN D3 1,000 UNIT TABLET PO SCH (09:38)
[2020-06-20] MEDS: FLUoxetine HCL 20 MG CAPSULE PO SCH (09:38)
[2020-06-20] MEDS: DULoxetine 30 MG CAPSULE PO SCH (09:39)
[2020-06-20] MEDS: MULTIVIT,THER IRON,CA,FA & MIN 1 TABLET PO SCH (09:39)
[2020-06-20] MEDS: NITROFURANTOIN SR 100 MG CAPSULE PO SCH ×2 (09:40→21:20)
[2020-06-20] MEDS: SPIRIVA RESPIMAT INH SCH (09:41)
[2020-06-20] MEDS: DOCUSATE SODIUM 100 MG CAPSULE PO SCH ×3 (09:42→21:20)
[2020-06-20] MEDS: HEPARIN 5,000 UNIT/ML VIAL SQ SCH ×2 (09:44→21:19)
[2020-06-20] MEDS: TELMISARTAN 40 MG TABLET PO SCH (09:52)
[2020-06-20] MEDS: cefTRIAXone 2 GM in DEXTROSE 5% IN WATER 50 ML IV SCH (09:53)
--- NOTE | 2020-06-20 13:08 | Internal Med Progress Note ---
SUBJECTIVE Subjective Patient information: Note initiated : 06/20/20 at 1:04 pm Service Date, if different from initiated Date: [] Patient: Jaiden Acosta 89 y/o F admitted on 06/18/20 for Shortness of breath. Chief Complaint: [] Interval history: Ms. Acosta is a 89 year old F with a known history of asthma/hypereosinophilic pulmonary syndrome who follows up with Dr. Sandra and recently transition Dr. Emerson with pulmonology. She lives with her Buck and has been in her baseline state of health until 3 days prior to presentation started noticing URI symptoms. She started getting progressively short of breath, over the last 24 hours has not been able to move or function. She presents to the ER with significant dyspnea and almost gasping. Patient is requiring 4 L oxygen. Blood gas compensated with pH 7.4 Patient was started on bronchodilators/steroids with improvement in work of breathing. Subsequently hospital service was consulted At the time of evaluation patient is alert and oriented. She is unable to talk in full sentences. Patient continues to wheeze but endorses that she feels a lot better since presentation. She denies fever, shaking chills, productive sputum, diarrhea, dysuria, rash, exposure to sick contacts or Covid-like symptoms including loss of smell or taste. 06/19-patient doing well. No overnight events. Able to talk in near full sentences however desats to low 80s as soon with minimal conversation. Eo sinophilia resolved following steroids. White count 3.4, continue Rocephin. No overnight fever chills. Check peak flow rate. Systolics around 140s. Restart home medications including telmisartan. 06/20-patient doing a lot better. No overnight events. No concerns per nursing staff. Desats during exertion but currently on 1 L oxygen at rest. Feels a lot better since admission. De-escalate IV steroids to oral, no overnight fever chills or concerns per staff. Tolerating diet and ambulating with assistance and undergoing physical therapy. Constitutional Vitals: Vital Signs Temp Pulse Resp BP Pulse Ox 98 F 85 15 147/77 92 06/20/20 11:49 06/20/20 11:49 06/20/20 11:49 06/20/20 11:49 06/20/20 11:49 Period Temp Pulse Resp BP Sys/Mckeon Pulse Ox Last 24 Hr 96.5 F-99.0 F 68-94 15-20 126-186/59-81 91-99 Intake and Output 06/19/20 06/20/20 06/20/20 21:59 05:59 13:59 Intake Total 340 120 300 Output Total 400 100 102 Balance -60 20 198 Weight 50.439 kg Alert oriented Minimally labored breathing, no wheezing improved., Able to talk in near full sentences No lymphedema Nondistended abdomen Intake & Output: Intake & Output 06/19/20 06/20/20 06/20/20 21:59 05:59 13:59 Intake Total 340 120 300 Output Total 400 100 102 Balance -60 20 198 Weight 50.439 kg Intake: Oral 340 120 300 Output: Void Amount 400 100 100 # of times incontinent of urine 2 Urine/Stool Mix 0 Other: Meal Dinner Breakfast Percent of Meal Consumed 75% 100% Urine Appearance Clear Clear Urine Color Dark Yellow Straw Bright Yellow Stool Size Smear Stool Color Brown Stool Consistency Leyda OBJ DATA Labs CBC & Chem 7: 06/20/20 06:16 06/20/20 06:16 Labs: Abnormal Lab Results 06/20/20 06/20/20 06/19/20 06:16 06:16 05:19 WBC RBC 3.68 L Hgb 11.7 L Hct 34.7 L Neut % (Auto) 90.6 H Lymph % (Auto) 5.0 L Eos % (Auto) Lymph # (Auto) 0.53 L [place] # (Auto) Eos # (Auto) Absolute Neutrophils 9.56 H ESR Sodium 131 L 132 L Carbon Dioxide 21 L Glucose 173 H 157 H Phosphorus 4.9 H Alkaline Phosphatase 127 H Lactate Dehydrogenase 251 H 278 H C-Reactive Protein 2.80 H NT-Pro-B Natriuret Pep 06/19/20 06/18/20 06/18/20 05:19 14:44 14:44 WBC 3.4 L RBC 3.87 L 3.83 L Hgb Hct Neut % (Auto) 85.4 H Lymph % (Auto) 12.5 L 11.2 L Eos % (Auto) 22.5 H Lymph # (Auto) 0.42 L 0.68 L [place] # (Auto) 0.07 L Eos # (Auto) 1.36 H Absolute Neutrophils ESR 24 H Sodium Carbon Dioxide Glucose Phosphorus Alkaline Phosphatase 129 H Lactate Dehydrogenase C-Reactive Protein NT-Pro-B Natriuret Pep 780.6 H Meds: Medications Acetaminophen (Acetaminophen 325 Mg Tablet) 650 mg PO Q4-6HP PRN; Protocol PRN Reason: Per Pain Protocol/Fever > 101 Last Admin: 06/18/20 21:37 Dose: 650 mg Documented by: Albuterol Sulfate (Albuterol Sulfate 200 Puff Inhaler) 2 puff INH Q4HP PRN PRN Reason: Bronchodilation Albuterol/Ipratropium (Ipratropium/Albuterol 3 Ml Ampul.Neb) 3 ml NEB Q4HRT [facility] Last Admin: 06/20/20 11:04 Dose: 3 ml Documented by: Alprazolam (Alprazolam 0.5 Mg Tablet) 2 mg PO QHS [facility] Last Admin: 06/19/20 20:55 Dose: 2 mg Documented by: Bisacodyl (Bisacodyl 10 Mg Supp.Rect) 10 mg NM Q2-3DAYS PRN PRN Reason: Constipation Budesonide (Budesonide 0.5 Mg/2 Ml Ampul.Neb) 0.5 mg NEB Q12 [facility] Last Admin: 06/20/20 07:16 Dose: 0.5 mg Documented by: Docusate Sodium (Docusate Sodium 100 Mg Capsule) 100 mg PO BID [facility] Last Admin: 06/20/20 09:52 Dose: 100 mg Documented by: Duloxetine HCl (Duloxetine 30 Mg Capsule) 60 mg PO DAILY [facility] Last Admin: 06/20/20 09:39 Dose: 60 mg Documented by: Fluoxetine HCl (Fluoxetine Hcl 20 Mg Capsule) 40 mg PO QDAY [facility] Last Admin: 06/20/20 09:38 Dose: 40 mg Documented by: Heparin Sodium (Porcine) (Heparin 5,000 Unit/Ml Vial) 5,000 unit SQ Q12 [facility] Last Admin: 06/20/20 09:44 Dose: 5,000 unit Documented by: Hydralazine HCl (Hydralazine 20 Mg/Ml Vial) 10 mg IV Q4-6HP PRN PRN Reason: Hypertension Potassium Chloride 40 meq/ (Dextrose) 520 mls @ 130 mls/hr IV UD PRN PRN Reason: K+ = or < 3.5 Acetaminophen (Ofirmev) 650 mg in 65 mls @ 130 mls/hr IV Q6HP PRN; Protocol PRN Reason: Per Pain Protocol/Fever > 101 Magnesium Sulfate (Magnesium Sulfate) 2 gm in 50 mls @ 50 mls/hr IV UD PRN PRN Reason: MG = or < 1.7 Ceftriaxone Sodium 2 gm/ (Dextrose) 50 mls @ 100 mls/hr IV Q24H [facility] Last Admin: 06/20/20 09:53 Dose: 100 mls/hr Documented by: Iron Carb/Multivit/[place]/Folic Acid (Multivit,Ther Iron,Ca,Fa & Min 1 Tablet) 1 tab PO DAILY [facility] Last Admin: 06/20/20 09:39 Dose: 1 tab Documented by: Melatonin (Melatonin 3 Mg Tablet) 3 mg PO HSP PRN PRN Reason: Insomnia Last Admin: 06/18/20 21:37 Dose: 3 mg Documented by: Methylprednisolone Sodium Succinate (Methylprednisolone Sod Succ 125 Mg/2 Ml Vial) 60 mg IV Q6 [facility] Last Admin: 06/20/20 06:48 Dose: 60 mg Documented by: Nitrofurantoin Macrocrystals (Nitrofurantoin Sr 100 Mg Capsule) 100 mg PO BID [facility] Last Admin: 06/20/20 09:40 Dose: 100 mg Documented by: Ondansetron HCl (Ondansetron 4 Mg Odt Tablet) 4 mg SL Q4-6HP PRN; Protocol PRN Reason: Nausea And Vomiting Ondansetron HCl (Ondansetron 4 Mg/2 Ml Vial) 4 mg IV Q4-6HP PRN; Protocol PRN Reason: Nausea And Vomiting Spiriva Respimat 2.5 (Mcg/Act Inh) 2 dose INH DAILY [facility] Last Admin: 06/20/20 09:41 Dose: Not Given Documented by: Polyethylene Glycol (Polyethylene Glycol 3350 17 Gm Packet) 17 gm PO DAILYP PRN PRN Reason: Constipation Potassium Chloride (Potassium Chloride 20 Meq Packet) 40 meq PO DAILYP PRN PRN Reason: K+ < 3.5 Pramipexole Dihydrochloride (Pramipexole 1 Mg Tablet) 1 mg PO [facility] Last Admin: 06/19/20 20:55 Dose: 1 mg Documented by: Senna/Docusate Sodium (Sennosides/Docusate Sodium 1 Tab Tablet) 1 tab PO [facility] Last Admin: 06/19/20 20:55 Dose: 1 tab Documented by: Sodium Chloride (0.9 % Sodium Chloride 10 Ml Syringe) 10 ml IV Q8 [facility] Last Admin: 06/20/20 06:48 Dose: 10 ml Documented by: Telmisartan (Telmisartan 40 Mg Tablet) 40 mg PO DAILY [facility] Last Admin: 06/20/20 09:52 Dose: 40 mg Documented by: Timolol Maleate (Timolol 0.5% Ophth Drops Bottle 5ml) 1 gtt OU DAILY [facility] Trazodone HCl (Trazodone Hcl 50 Mg Tablet) 50 mg PO HSP PRN PRN Reason: Insomnia Last Admin: 06/19/20 22:35 Dose: 50 mg Documented by: Vitamin D (Vitamin D3 1,000 Unit Tablet) 1,000 unit PO QDAY [facility] Last Admin: 06/20/20 09:38 Dose: 1,000 unit Documented by: A/P Narrative A/P Narrative: * AECOPD with underlying chronic asthma and acute bronchitis-clinical i mprovement noted on bronchodilator/PO steroid. peak flow rates improving from 100. Supplemental oxygen on 2 L O2 * Acute hypoxic respiratory failure continue supplemental oxygen. No 2 L o2. Currently to wean oxygen as tolerated * Hypereosinophilia at 20% (chronic )with allergic pulmonary manifestat ion/reactive airway component. Dramatic resolution following steroid administration. Follow as an outpatient pulmonology * Anxiety disorder continue fluoxetine/Xanax * History of hypertension restart home dose ARB * Hypothyroid Continue thyroxine * Full code PLAN * Continue steroids/bronchodilators * Switch to PO Prednisone * Antibiotic coverage * Pre-existing medical condition management home medications * Discharge planning/PT OT nutrition support Time Spent With Patient Time: Total time spent is greater than 50% in coordination of care (as documented) at patient's floor/unit and/or counseling patient: QUALITY VTE Deep Vein Thrombosis/Pulmonary Embolism Present on Admission: No
[2020-06-20] MEDS: predniSONE 20 MG TABLET PO SCH (14:59)
[2020-06-20] MEDS: TIMOLOL 0.5% OPHTH DROPS BOTTLE 5ML OU SCH (15:03)
[2020-06-20] MEDS: SENNOSIDES/DOCUSATE SODIUM 1 TAB TABLET PO SCH (21:20)
[2020-06-20] MEDS: ALPRAZolam 0.5 MG TABLET PO SCH (21:20)
[2020-06-20] MEDS: PRAMIPEXOLE 1 MG TABLET PO SCH (21:20)
[2020-06-21] MEDS: IPRATROPIUM/ALBUTEROL 3 ML AMPUL.NEB NEB SCH ×6 (03:38→22:28)
[2020-06-21] MEDS: 0.9 % SODIUM CHLORIDE 10 ML SYRINGE IV SCH ×3 (05:34→21:40)
[2020-06-21 06:48] LABS: Basophils # (Auto) 0 K/mcL (0.00-0.20); Basophils % (Auto) 0 % (0.0-2.0); Eosinophils # (Auto) 0 K/mcL (0.00-0.70); Eosinophils % (Auto) 0 % (0.0-7.0); Hematocrit 36.9 % (36.0-48.0); Hemoglobin 12.1 g/dL (12.0-15.0); Lymphocytes # (Auto) 0.75 K/mcL (1.50-4.80); Lymphocytes % (Auto) 7.5 % (15.0-49.0); Mean Cell Volume 96.3 fL (80.0-100.0); Mean Corpuscular HGB Conc 32.8 g/dL (31.0-36.0); Mean Platelet Volume 10.2 fL (7.4-10.4); Monocytes # (Auto) 0.74 K/mcL (0.10-0.90); Monocytes % (Auto) 7.4 % (1.0-12.0); Neutrophils % (Auto) 85.1 % (38.0-78.0); Platelet Count 316 K/mcL (140-440); RBC 3.83 M/mcL (4.00-5.20); Red Cell Distribution Width 13.3 % (11.5-14.5); WBC 9.9 K/mcL (4.5-11.0)
[2020-06-21 07:07] LABS: ALT/SGPT 16 U/L (<40); AST/SGOT 18 U/L (<32); Albumin 3.9 gm/dL (3.2-5.2); Albumin/Globulin Ratio 1.3 (1.0-2.3); Alkaline Phosphatase 120 U/L (39-117); Bilirubin,Direct < 0.2 mg/dL (0-0.3); Bilirubin,Total < 0.2 mg/dL (0.1-1.0); Blood Urea Nitrogen 23 mg/dL (8-23); Calcium 9.1 mg/dL (8.6-10.4); Carbon Dioxide 27 mmol/L (22-30); Chloride 98 mmol/L (96-108); Globulin 2.9 gm/dL (2.2-3.7); Glomerular Filtration Rate 78; Glucose 136 mg/dL (70-105); Lactate Dehydrogenase 229 U/L (135-225); Triglycerides 103 mg/dL (<150)
[2020-06-21] MEDS: BUDESONIDE 0.5 MG/2 ML AMPUL.NEB NEB SCH ×2 (07:33→18:46)
--- NOTE | 2020-06-21 08:08 | Internal Med Progress Note ---
SUBJECTIVE Subjective Patient information: Note initiated : 06/21/20 at 8:05 am Service Date, if different from initiated Date: [] Patient: Jaiden Acosta 89 y/o F admitted on 06/18/20 for Shortness of breath. Chief Complaint: [] Interval history: Ms. Acosta is a 89 year old F with a known history of asthma/hypereosinophilic pulmonary syndrome who follows up with Dr. Sandra and recently transition Dr. Emerson with pulmonology. She lives with her Buck and has been in her baseline state of health until 3 days prior to presentation started noticing URI symptoms. She started getting progressively short of breath, over the last 24 hours has not been able to move or function. She presents to the ER with significant dyspnea and almost gasping. Patient is requiring 4 L oxygen. Blood gas compensated with pH 7.4 Patient was started on bronchodilators/steroids with improvement in work of breathing. Subsequently hospital service was consulted At the time of evaluation patient is alert and oriented. She is unable to talk in full sentences. Patient continues to wheeze but endorses that she feels a lot better since presentation. She denies fever, shaking chills, productive sputum, diarrhea, dysuria, rash, exposure to sick contacts or Covid-like symptoms including loss of smell or taste. 06/19-patient doing well. No overnight events. Able to talk in near full sentences however desats to low 80s as soon with minimal conversation. Eo sinophilia resolved following steroids. White count 3.4, continue Rocephin. No overnight fever chills. Check peak flow rate. Systolics around 140s. Restart home medications including telmisartan. 06/20-patient doing a lot better. No overnight events. No concerns per nursing staff. Desats during exertion but currently on 1 L oxygen at rest. Feels a lot better since admission. De-escalate IV steroids to oral, no overnight fever chills or concerns per staff. Tolerating diet and ambulating with assistance and undergoing physical therapy. 06/21-patient doing better than previous day. However continues to be short of breath. Still requiring 2 L oxygen. Anticipate discharge in 24 hours pending clinical improvement. Able to ambulate. Tolerating diet. Transition to oral steroids. Improved peak flow rate. Constitutional Vitals: Vital Signs Temp Pulse Resp BP Pulse Ox 97.7 F 86 20 147/71 91 04/19/21 07:46 06/21/20 07:46 06/21/20 07:46 06/21/20 07:46 06/21/20 07:46 Period Temp Pulse Resp BP Sys/Mckeon Pulse Ox Last 24 Hr 96.5 F-98.5 F 77-94 15-20 143-198/69-89 90-99 Intake and Output 06/20/20 06/21/20 06/21/20 21:59 05:59 13:59 Intake Total 380 240 Output Total 0 150 1 Balance 380 90 -1 Weight 49.952 kg alert oriented Minimally labored breathing on 2 L oxygen Nondistended abdomen No anxiety Intake & Output: Intake & Output 06/20/20 06/21/20 06/21/20 21:59 05:59 13:59 Intake Total 380 240 Output Total 0 150 1 Balance 380 90 -1 Weight 49.952 kg Intake: Oral 380 240 Output: Void Amount 150 # of times incontinent of urine 1 Urine/Stool Mix 0 Other: Meal Dinner Percent of Meal Consumed 75% Feeding Ability Assist with Tray Set Up Urine Color Bright Yellow Dark Yellow Urine Odor Strong Stool Size Small Stool Color Brown Stool Consistency Normal for Patient Soft Formed # Voids 1 # Bowel Movements 1 OBJ DATA Labs CBC & Chem 7: 06/21/20 05:06 06/21/20 05:06 Labs: Abnormal Lab Results 06/21/20 06/21/20 06/20/20 05:06 05:06 06:16 WBC RBC 3.83 L Hgb Hct Neut % (Auto) 85.1 H Lymph % (Auto) 7.5 L Eos % (Auto) Lymph # (Auto) 0.75 L [place] # (Auto) Eos # (Auto) Absolute Neutrophils 8.45 H ESR Sodium 131 L Carbon Dioxide Glucose 136 H 173 H Phosphorus Alkaline Phosphatase 120 H Lactate Dehydrogenase 229 H 251 H C-Reactive Protein NT-Pro-B Natriuret Pep 06/20/20 06/19/20 06/19/20 06:16 05:19 05:19 WBC 3.4 L RBC 3.68 L 3.87 L Hgb 11.7 L Hct 34.7 L Neut % (Auto) 90.6 H 85.4 H Lymph % (Auto) 5.0 L 12.5 L Eos % (Auto) Lymph # (Auto) 0.53 L 0.42 L [place] # (Auto) 0.07 L Eos # (Auto) Absolute Neutrophils 9.56 H ESR 24 H Sodium 132 L Carbon Dioxide 21 L Glucose 157 H Phosphorus 4.9 H Alkaline Phosphatase 127 H Lactate Dehydrogenase 278 H C-Reactive Protein 2.80 H NT-Pro-B Natriuret Pep 06/18/20 06/18/20 14:44 14:44 WBC RBC 3.83 L Hgb Hct Neut % (Auto) Lymph % (Auto) 11.2 L Eos % (Auto) 22.5 H Lymph # (Auto) 0.68 L [place] # (Auto) Eos # (Auto) 1.36 H Absolute Neutrophils ESR Sodium Carbon Dioxide Glucose Phosphorus Alkaline Phosphatase 129 H Lactate Dehydrogenase C-Reactive Protein NT-Pro-B Natriuret Pep 780.6 H Meds: Medications Acetaminophen (Acetaminophen 325 Mg Tablet) 650 mg PO Q4-6HP PRN; Protocol PRN Reason: Per Pain Protocol/Fever > 101 Last Admin: 06/18/20 21:37 Dose: 650 mg Documented by: Albuterol Sulfate (Albuterol Sulfate 200 Puff Inhaler) 2 puff INH Q4HP PRN PRN Reason: Bronchodilation Albuterol/Ipratropium (Ipratropium/Albuterol 3 Ml Ampul.Neb) 3 ml NEB Q4HRT [facility] Last Admin: 06/21/20 07:33 Dose: 3 ml Documented by: Alprazolam (Alprazolam 0.5 Mg Tablet) 2 mg PO QHS [facility] Last Admin: 06/20/20 21:20 Dose: 2 mg Documented by: Bisacodyl (Bisacodyl 10 Mg Supp.Rect) 10 mg [place] Q2-3DAYS PRN PRN Reason: Constipation Budesonide (Budesonide 0.5 Mg/2 Ml Ampul.Neb) 0.5 mg NEB Q12 [facility] Last Admin: 06/21/20 07:33 Dose: 0.5 mg Documented by: Docusate Sodium (Docusate Sodium 100 Mg Capsule) 100 mg PO BID [facility] Last Admin: 06/20/20 21:20 Dose: 100 mg Documented by: Duloxetine HCl (Duloxetine 30 Mg Capsule) 60 mg PO DAILY [facility] Last Admin: 06/20/20 09:39 Dose: 60 mg Documented by: Fluoxetine HCl (Fluoxetine Hcl 20 Mg Capsule) 40 mg PO QDAY [facility] Last Admin: 06/20/20 09:38 Dose: 40 mg Documented by: Heparin Sodium (Porcine) (Heparin 5,000 Unit/Ml Vial) 5,000 unit SQ Q12 [facility] Last Admin: 06/20/20 21:19 Dose: 5,000 unit Documented by: Hydralazine HCl (Hydralazine 20 Mg/Ml Vial) 10 mg IV Q4-6HP PRN PRN Reason: Hypertension Last Admin: 06/20/20 17:49 Dose: 10 mg Documented by: Potassium Chloride 40 meq/ (Dextrose) 520 mls @ 130 mls/hr IV UD PRN PRN Reason: K+ = or < 3.5 Acetaminophen (Ofirmev) 650 mg in 65 mls @ 130 mls/hr IV Q6HP PRN; Protocol PRN Reason: Per Pain Protocol/Fever > 101 Magnesium Sulfate (Magnesium Sulfate) 2 gm in 50 mls @ 50 mls/hr IV UD PRN PRN Reason: MG = or < 1.7 Ceftriaxone Sodium 2 gm/ (Dextrose) 50 mls @ 100 mls/hr IV Q24H [facility] Last Infusion: 06/20/20 10:25 Dose: Infused Documented by: Iron Carb/Multivit/Emmons/Folic Acid (Multivit,Ther Iron,Ca,Fa & Min 1 Tablet) 1 tab PO DAILY [facility] Last Admin: 06/20/20 09:39 Dose: 1 tab Documented by: Melatonin (Melatonin 3 Mg Tablet) 3 mg PO HSP PRN PRN Reason: Insomnia Last Admin: 06/18/20 21:37 Dose: 3 mg Documented by: Nitrofurantoin Macrocrystals (Nitrofurantoin Sr 100 Mg Capsule) 100 mg PO BID [facility] Last Admin: 06/20/20 21:20 Dose: 100 mg Documented by: Ondansetron HCl (Ondansetron 4 Mg Odt Tablet) 4 mg SL Q4-6HP PRN; Protocol PRN Reason: Nausea And Vomiting Ondansetron HCl (Ondansetron 4 Mg/2 Ml Vial) 4 mg IV Q4-6HP PRN; Protocol PRN Reason: Nausea And Vomiting Spiriva Respimat 2.5 (Mcg/Act Inh) 2 dose INH DAILY [facility] Last Admin: 06/20/20 09:41 Dose: Not Given Documented by: Polyethylene Glycol (Polyethylene Glycol 3350 17 Gm Packet) 17 gm PO DAILYP PRN PRN Reason: Constipation Potassium Chloride (Potassium Chloride 20 Meq Packet) 40 meq PO DAILYP PRN PRN Reason: K+ < 3.5 Pramipexole Dihydrochloride (Pramipexole 1 Mg Tablet) 1 mg PO [facility] Last Admin: 06/20/20 21:20 Dose: 1 mg Documented by: Prednisone (Prednisone 20 Mg Tablet) 40 mg PO [facility] Last Admin: 06/20/20 14:59 Dose: 40 mg Documented by: Senna/Docusate Sodium (Sennosides/Docusate Sodium 1 Tab Tablet) 1 tab PO [facility] Last Admin: 06/20/20 21:20 Dose: 1 tab Documented by: Sodium Chloride (0.9 % Sodium Chloride 10 Ml Syringe) 10 ml IV Q8 [facility] Last Admin: 06/21/20 05:34 Dose: 10 ml Documented by: Telmisartan (Telmisartan 40 Mg Tablet) 40 mg PO DAILY [facility] Last Admin: 06/20/20 09:52 Dose: 40 mg Documented by: Timolol Maleate (Timolol 0.5% Ophth Drops Bottle 5ml) 1 gtt OU DAILY [facility] Last Admin: 06/20/20 15:03 Dose: Not Given Documented by: Trazodone HCl (Trazodone Hcl 50 Mg Tablet) 50 mg PO HSP PRN PRN Reason: Insomnia Last Admin: 06/19/20 22:35 Dose: 50 mg Documented by: Vitamin D (Vitamin D3 1,000 Unit Tablet) 1,000 unit PO QDAY [facility] Last Admin: 06/20/20 09:38 Dose: 1,000 unit Documented by: A/P Narrative A/P Narrative: * Acute exacerbation of COPD/acute asthma exacerbation-clinical improvement noted on bronchodilator/transition to oral steroid. peak flow rates improving. * Acute hypoxic respiratory failure continue supplemental oxygen. Weaning oxygen as tolerated. 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 Dramatic resolution following steroid administration. Follows as an outpatient pulmonology * Anxiety disorder continue fluoxetine/Xanax * History of hypertension restart home dose ARB * Hypothyroid Continue thyroxine * Full code PLAN * Bronchodilators/pulmonary toilet * Switch to PO Prednisone * DC antibiotics in 24 hours * Pre-existing medical condition management home medications * Discharge planning/PT OT nutrition support Time Spent With Patient Time: Total time spent is greater than 50% in coordination of care (as documented) at patient's floor/unit and/or counseling patient: QUALITY VTE Deep Vein Thrombosis/Pulmonary Embolism Present on Admission: No
[2020-06-21] MEDS: DOCUSATE SODIUM 100 MG CAPSULE PO SCH ×2 (10:26→21:40)
[2020-06-21] MEDS: FLUoxetine HCL 20 MG CAPSULE PO SCH (10:26)
[2020-06-21] MEDS: predniSONE 20 MG TABLET PO SCH (10:26)
[2020-06-21] MEDS: DULoxetine 30 MG CAPSULE PO SCH (10:27)
[2020-06-21] MEDS: MULTIVIT,THER IRON,CA,FA & MIN 1 TABLET PO SCH (10:27)
[2020-06-21] MEDS: VITAMIN D3 1,000 UNIT TABLET PO SCH (10:27)
[2020-06-21] MEDS: NITROFURANTOIN SR 100 MG CAPSULE PO SCH ×2 (10:28→21:39)
[2020-06-21] MEDS: SPIRIVA RESPIMAT INH SCH (10:29)
[2020-06-21] MEDS: TELMISARTAN 40 MG TABLET PO SCH (10:29)
[2020-06-21] MEDS: TIMOLOL 0.5% OPHTH DROPS BOTTLE 5ML OU SCH (10:30)
[2020-06-21] MEDS: HEPARIN 5,000 UNIT/ML VIAL SQ SCH ×2 (10:31→21:39)
[2020-06-21] MEDS: cefTRIAXone 2 GM in DEXTROSE 5% IN WATER 50 ML IV SCH (10:32)
[2020-06-21] MEDS: SENNOSIDES/DOCUSATE SODIUM 1 TAB TABLET PO SCH (21:40)
[2020-06-21] MEDS: ALPRAZolam 0.5 MG TABLET PO SCH (21:40)
[2020-06-21] MEDS: PRAMIPEXOLE 1 MG TABLET PO SCH (21:40)
[2020-06-22] MEDS: IPRATROPIUM/ALBUTEROL 3 ML AMPUL.NEB NEB SCH ×3 (02:26→11:13)
[2020-06-22] MEDS: ACETAMINOPHEN 325 MG TABLET PO PRN (02:26)
[2020-06-22] MEDS: BUDESONIDE 0.5 MG/2 ML AMPUL.NEB NEB SCH (07:34)
[2020-06-22] MEDS: MULTIVIT,THER IRON,CA,FA & MIN 1 TABLET PO SCH (09:04)
[2020-06-22] MEDS: VITAMIN D3 1,000 UNIT TABLET PO SCH (09:04)
[2020-06-22] MEDS: FLUoxetine HCL 20 MG CAPSULE PO SCH (09:04)
[2020-06-22] MEDS: predniSONE 20 MG TABLET PO SCH (09:04)
[2020-06-22] MEDS: TELMISARTAN 40 MG TABLET PO SCH (09:05)
[2020-06-22] MEDS: DOCUSATE SODIUM 100 MG CAPSULE PO SCH (09:05)
[2020-06-22] MEDS: cefTRIAXone 2 GM in DEXTROSE 5% IN WATER 50 ML IV SCH (09:06)
[2020-06-22] MEDS: 0.9 % SODIUM CHLORIDE 10 ML SYRINGE IV SCH (09:06)
[2020-06-22] MEDS: NITROFURANTOIN SR 100 MG CAPSULE PO SCH (09:07)
[2020-06-22] MEDS: HEPARIN 5,000 UNIT/ML VIAL SQ SCH (09:07)
[2020-06-22] MEDS: DULoxetine 30 MG CAPSULE PO SCH (09:07)
[2020-06-22] MEDS: SPIRIVA RESPIMAT INH SCH (09:08)
[2020-06-22] MEDS: TIMOLOL 0.5% OPHTH DROPS BOTTLE 5ML OU SCH (09:08)
[2020-06-22 09:32] LABS: Basophils # (Auto) 0 K/mcL (0.00-0.20); Basophils % (Auto) 0 % (0.0-2.0); Eosinophils # (Auto) 0.03 K/mcL (0.00-0.70); Eosinophils % (Auto) 0.4 % (0.0-7.0); Hemoglobin 12.2 g/dL (12.0-15.0); Lymphocytes # (Auto) 1.42 K/mcL (1.50-4.80); Lymphocytes % (Auto) 19.6 % (15.0-49.0); Mean Cell Volume 98.4 fL (80.0-100.0); Mean Corpuscular HGB Conc 32.1 g/dL (31.0-36.0); Monocytes # (Auto) 0.89 K/mcL (0.10-0.90); Monocytes % (Auto) 12.3 % (1.0-12.0); Neutrophils % (Auto) 67.7 % (38.0-78.0); Platelet Count 300 K/mcL (140-440); RBC 3.86 M/mcL (4.00-5.20); Red Cell Distribution Width 13.3 % (11.5-14.5); WBC 7.2 K/mcL (4.5-11.0)
[2020-06-22 09:38] LABS: ALT/SGPT 18 U/L (<40); AST/SGOT 20 U/L (<32); Albumin/Globulin Ratio 1.3 (1.0-2.3); Alkaline Phosphatase 110 U/L (39-117); Bilirubin,Direct < 0.2 mg/dL (0-0.3); Bilirubin,Total 0.2 mg/dL (0.1-1.0); Blood Urea Nitrogen 18 mg/dL (8-23); Calcium 9.1 mg/dL (8.6-10.4); Carbon Dioxide 28 mmol/L (22-30); Chloride 98 mmol/L (96-108); Glomerular Filtration Rate 82; Glucose 103 mg/dL (70-105); Lactate Dehydrogenase 221 U/L (135-225); Phosphorous 2.7 mg/dL (2.5-4.5); Triglycerides 117 mg/dL (<150); Uric Acid 3.2 mg/dL (2.5-8.0)
--- NOTE | 2020-06-22 11:27 | Discharge Summary ---
Discharge Provider Provider Patient information: Note initiated : 06/22/20 at 11:24 am Service Date, if different from initiated Date: [] Patient: Jaiden Acosta 89 y/o F admitted on 06/18/20 for Shortness of breath. Chief Complaint: [Shortness of breath secondary to Asthma/COPD exacerbation] Date of admission: 06/18/20 20:23 Discharge date: 06/22/20 Primary care physician: Iftikhar Rios MD Consults: 06/18/20 18:43 Consult to Physician [CONS] Stat Comment: Consulting Provider: Henrry Hull Reason For Exam: Physician to Consult Discharge Meds Discharge Medications Home Medications imipramine HCl 1 tab PO QHS 04/25/19 [History Confirmed 06/19/20 Last Taken 06/17/20] levothyroxine 1 tab PO DAILY 04/25/19 [History Confirmed 06/19/20 Last Taken 06/18/20] cholecalciferol (vitamin D3) 1 tab PO QDAY 04/13/20 [History Confirmed 06/19/20 Last Taken 06/17/20] alprazolam 2 mg tablet 2 mg PO QHS 06/17/20 [History Confirmed 06/19/20 Last Taken 06/17/20] fluoxetine 40 mg capsule 40 mg PO QDAY 06/17/20 [History Confirmed 06/19/20 Last Taken 06/17/20] nitrofurantoin 100 mg PO BID 06/18/20 [History Confirmed 06/19/20 Last Taken 06/18/20] Lumigan 1 drp OPHTHALMIC (EYE) DAILY 06/19/20 [History Confirmed 06/19/20 Last Taken 06/17/20] Spiriva Respimat 2 puff INHALATION DAILY 06/19/20 [History Confirmed 06/19/20 Last Taken Unknown] albuterol sulfate 2 puff INHALATION PRN PRN 06/19/20 [History Confirmed 06/19/20 Last Taken 06/18/20] duloxetine 60 mg PO DAILY 06/19/20 [History Confirmed 06/19/20 Last Taken 06/17/20] pramipexole 1 mg PO HS 06/19/20 [History Confirmed 06/19/20 Last Taken Unknown] telmisartan-hydrochlorothiazid 1 tab PO DAILY 06/19/20 [History Confirmed 06/19/20 Last Taken Unknown] timolol maleate 1 drp OPHTHALMIC (EYE) DAILY 06/19/20 [History Confirmed 06/19/20 Last Taken Unknown] prednisone 40 mg PO [facility] #6 tab 06/22/20 [Rx Last Taken Unknown] COURSE Hospital Course Hospital course: Patient was being admitted on 06/18/20 for asthma exacerbation. Supplemental oxygen, DuoNEB, steroid (inhaled, IV, and oral) were all given. In addition, Rocephin was also being offered to cover for any concomitant pneumoni a. By 06/22/20, patient was able to tolerate room air, and otherwise reached clinical stability. There was no evidence to suggest the presence of pneumonia, so the antibiotics was stopped. The decision was made to discharge her home on 06/22/20 with Rx Prednisone for 3 additional days sent in to pharmacy. PCP follow up appointment within 2 week made for her. All questions were answered prior to patient being physically discharged. Discharge diagnosis: Asthma exacerbation. Reason for admission: Shortness of breath Time Spent with Patient Time attestation: Total time spent providing and/or coordinating discharge services: Time spent: Less than 30 minutes Specific discharge activities: Activities as tolerated. EXAM Constitutional Vitals: Temp Pulse Resp BP Pulse Ox 36.6 C 79 18 180/83 92 06/22/20 08:00 06/22/20 11:13 06/22/20 11:13 06/22/20 08:00 06/22/20 11:13 General appearance: cooperative and no acute distress Head Head exam: Present atraumatic and normocephalic Eye Eye exam: Present EOMI and PERRL ENT ENT exam: Present mucous membranes moist, normal exam and normal external ear exam Neck Neck exam: Present normal inspection; Absent lymphadenopathy, tenderness and thyromegaly Respiratory Respiratory exam: Present wheezes (mild); Absent accessory muscle use and respiratory distress Cardiovascular Cardiovascular exam: Present normal rate and rhythm; Absent JVD GI/Abdominal GI/Abdominal exam: Present normal bowel sounds and soft; Absent organomegaly and tenderness Extremities Exam Extremities exam: Present full ROM, normal capillary refill and normal inspection; Absent tenderness Neurological Exam Neurological exam: Present alert, CN II-XII intact and oriented X3; Absent motor sensory deficit Psychiatric Psychiatric exam: Present normal affect and normal mood; Absent anxious and depressed Skin Skin exam: Present dry and intact Discharge Data Data Completed and Pending Labs on day of discharge: Labs from last 24 hours 06/22/20 06/22/20 05:15 05:15 WBC 7.2 RBC 3.86 L Hgb 12.2 Hct 38.0 MCV 98.4 MCH 31.6 MCHC 32.1 RDW 13.3 Plt Count 300 MPV 10.0 Neut % (Auto) 67.7 Lymph % (Auto) 19.6 [place] % (Auto) 12.3 H Eos % (Auto) 0.4 Baso % (Auto) 0 Lymph # (Auto) 1.42 L [place] # (Auto) 0.89 Eos # (Auto) 0.03 Baso # (Auto) 0 Absolute Neutrophils 4.89 Sodium 133 Potassium 3.9 Chloride 98 Carbon Dioxide 28 Anion Gap 7.0 L BUN 18 Creatinine 0.6 GFR Calculation 82 Glucose 103 Uric Acid 3.2 Calcium 9.1 Phosphorus 2.7 Magnesium 2.3 Total Bilirubin 0.2 Direct Bilirubin < 0.2 GGT 14 AST 20 ALT 18 Alkaline Phosphatase 110 Lactate Dehydrogenase 221 Total Protein 7.0 Albumin 4.0 Globulin 3.0 Albumin/Globulin Ratio 1.3 Triglycerides 117 Preliminary micro results at discharge 06/18/20 14:44 Blood Culture - Preliminary Blood 06/18/20 14:38 Blood Culture - Preliminary Blood Discharge Plan Patient/Caregiver Discharge Instructions Activity: increase activity as tolerated Diet: Regular Diet Instructions: Asthma (DC) Activity Restrictions/Additional Instructions: as tolerated Prescriptions: New prednisone 20 mg Tablet 40 mg PO [facility] Qty: 6 RF: 0 Continued cholecalciferol (vitamin D3) 1 tab PO QDAY RF: 0 alprazolam 2 mg tablet 2 mg PO QHS RF: 0 fluoxetine 40 mg capsule 40 mg PO QDAY RF: 0 imipramine HCl 50 MG tablet 1 tab PO QHS RF: 0 levothyroxine 50 MCG tablet 1 tab PO DAILY RF: 0 nitrofurantoin 100 mg Capsule 100 mg PO BID RF: 0 albuterol sulfate 90 mcg/actuation HFA aerosol inhaler 2 puff INHALATION PRN PRN (Reason: Bronchodilation) RF: 0 Lumigan 0.01 % drops 1 drp OPHTHALMIC (EYE) DAILY RF: 0 duloxetine 60 mg capsule,delayed release(DR/EC) 60 mg PO DAILY RF: 0 pramipexole 1 mg tablet 1 mg PO HS RF: 0 Spiriva Respimat 2.5 mcg/actuation mist 2 puff INHALATION DAILY RF: 0 telmisartan-hydrochlorothiazid 80-12.5 mg tablet 1 tab PO DAILY RF: 0 timolol maleate 0.5 % drops 1 drp OPHTHALMIC (EYE) DAILY RF: 0 Follow Up Plan Follow up with: Iftikhar Rios MD [Primary Care Provider] - Patient Disposition: Home, Self-Care Discharge Orders: Discharge Order (Routine); Ordered 06/22/20 Ordered By: Evin MORTENSEN VTE Deep Vein Thrombosis/Pulmonary Embolism Present on Admission: No
[2020-06-22] MEDS ORDERED: ALBUTEROL SULFATE 200 PUFF INHALER INH PRN (14:58)
== END 2020-06-22 15:35 | disposition home or self-care (01) | DRG 190 ==
LOC: ED 12:14 → MEDSUR 12:14 → OBSVTOIN 20:23 → MEDSUR 20:31
PROVIDERS: ADMIT Internal Medicine; ATTEND Internal Medicine

== ENCOUNTER 2021-09-16 09:56 | Observation (INO) ==
[2021-09-16] MEDS ORDERED: IOPAMIDOL 100 ML BOTTLE IV ONE (09:57)
--- NOTE | 2021-09-16 10:15 | Emergency Department Note ---
Neuro HPI General Chief Complaint: Stroke Symptoms Stated Complaint: possible stroke Time Seen by Provider: 09/16/21 10:12 Source: patient Mode of arrival: ambulatory Limitations: no limitations History of Present Illness HPI Narrative: Narrative: Patient is a an 89-year-old female with a complex past medical history, but unfortunately patient does have some difficulty giving history as well as what medication she is taking currently, who presents to the emergency department due to concern for stroke. Patient has a last known normal of 9:30 PM last night. She states that this morning she woke up and on the way to the bathroom noticed that she was having issues with balance. She also endorses slurring of her speech, dropping of objects, and difficulty reaching out to grab objects. She does endorse tremors as well, but she states that this has been seen in the past. Patient also endorses jerking movement of her head/neck and extremities. She states that this is new, but importantly nursing staff does note having seen this patient previously, and they state that these jerking movements are not ne w. On Anticoagulants: No Related Data Home Medications Medication Instructions Recorded Confirmed levothyroxine 50 mcg tablet 1 tab PO DAILY 04/25/19 09/16/21 cholecalciferol (vitamin D3) 1 tab PO QDAY 04/13/20 08/23/21 fluoxetine 40 mg capsule 40 mg PO QDAY 06/17/20 09/16/21 bimatoprost 0.01 % eye drops 1 drp ophthalmic (eye) DAILY 06/19/20 08/23/21 ([place]igan) pramipexole 1 mg tablet 1 mg PO HS 06/19/20 09/16/21 telmisartan 80 1 tab PO QHS 06/19/20 09/16/21 mg-hydrochlorothiazide 12.5 mg tablet timolol maleate 0.5 % eye drops 1 drp ophthalmic (eye) DAILY 06/19/20 08/23/21 ascorbic acid (vitamin C) 1 tab PO QDAY 11/24/20 08/23/21 fexofenadine 180 mg tablet 180 mg PO BID 11/24/20 08/23/21 ([facility]) guaifenesin [Mucinex] PO 11/24/20 08/23/21 triamcinolone acetonide 55 mcg See Rx Instructions intranasal 11/24/20 08/23/21 nasal spray aerosol (Nasacort) .COMPLEX Previous Rx's Medication Instructions Recorded albuterol sulfate 1.25 mg/3 mL 1.25 mg (3 mL) inhalation Q4H PRN 06/22/20 solution for nebulization shortness of breath or wheezing #90 mL hydrocodone 5 mg-acetaminophen 325 1 tab PO Q6H PRN pain #30 tabs 09/09/20 mg tablet alprazolam 1 mg tablet 1 mg PO QHS PRN anxiety #14 tabs 03/29/21 albuterol sulfate 90 mcg/actuation 2 puff inhalation .Q4-6H PRN 05/12/21 aerosol inhaler (ProAir HFA) shortness of breath or wheezing #8.5 grams fluticasone propionate 115 2 puff inhalation BID #12 grams 05/12/21 mcg-salmeterol 21 mcg/actuation HFA inhaler (Advair HFA) tiotropium bromide 2.5 2 puff inhalation DAILY #4 grams 05/12/21 mcg/actuation mist for inhalation (Spiriva Respimat) quetiapine 25 mg tablet 25 mg PO HS for insomnia #60 tabs 06/21/21 imipramine HCl 50 mg tablet 50 mg PO HS for insomnia #30 tabs 08/02/21 duloxetine 60 mg capsule,delayed 60 mg PO DAILY Mood #30 caps 08/09/21 release hydroxyzine HCl 25 mg tablet See Rx Instructions .Route 08/09/21 .COMPLEX #60 tabs lamotrigine 150 mg tablet 150 mg PO QDAY Mood #30 tabs 08/09/21 Allergies Allergy/AdvReac Type Severity Reaction Status Date / Time ciprofloxacin [From Cipro] Allergy Unknown Unknown Verified 08/23/21 10:46 egg AdvReac Intermediate Gastrointestinal Verified 08/23/21 10:46 Upset lactase [From Dairy Aid] AdvReac Intermediate Gastrointestinal Verified 08/23/21 10:46 Upset codeine [CODEINE] AdvReac Mild VOMITING Verified 08/23/21 10:46 milk AdvReac Unknown unknown Verified 08/23/21 10:46 Sugars, Metabolically Active AdvReac Unknown Unknown Verified 08/23/21 10:46 Tomato AdvReac Unknown Unknown Verified 08/23/21 10:46 Review of Systems ROS ROS Narrative: Narrative: Constitutional: Denies fever or weakness Eyes: Denies eye pain or vision change ENT ED: Denies throat pain, hearing loss or rhinorrhea Cardiovascular: Denies chest pain, dyspnea on exertion, orthopnea or edema Respiratory: Denies shortness of breath or cough Gastrointestinal: Denies abdominal pain, nausea, vomiting, diarrhea, constipation, hematochezia or melena Musculoskeletal: Denies back pain or myalgia Integumentary: Denies rash or lesions Neurological: Reports abnormal gait and other (Slurred speech, dropping objects, and difficulty reaching out and grabbing objects); Denies headache, weakness, numbness, confusion or dizziness Psychiatric: Denies anxiety, suicidal thoughts or homicidal thoughts Endocrine: Denies fatigue or polyuria Hematological/Lymphatic: Denies easy bleeding or easy bruising PFS Narrative Patient History Narrative: Narrative: Medical/Surgical/Family History All Active Problems (Updated 09/16/21 @ 14:43 by Gary Lake MD) Imbalance (Acute) Ataxia (Acute) Dysarthria (Acute) Tremor (Chronic) Neck pain (Chronic) Muscle weakness (Chronic) Muscle ache (Chronic) Left elbow pain (Chronic) Guy hematuria (Chronic) Urinary tract infection (Chronic) Chronic obstructive pulmonary disease with (acute) exacerbation (Chronic) Hypoxia (Chronic) Elbow laceration (Chronic) Fall (Chronic) Dehiscence of wound (Chronic) Laceration (Chronic) COPD (chronic obstructive pulmonary disease) with acute bronchitis (Chronic) Asthma exacerbation, mild (Chronic) Left lower lobe pulmonary infiltrate (Chronic) Asthma with exacerbation (Chronic) Anxiety (Chronic) SOB (shortness of breath) (Chronic) Acute exacerbation of chronic obstructive airways disease (Chronic) Respiratory failure with hypoxia and hypercapnia (Chronic) COPD (chronic obstructive pulmonary disease) (Chronic) 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) Pruritus of skin (Chronic) Bipolar disorder (Chronic) Anemia (Chronic) Restless legs (Chronic) Hypothyroidism (Chronic) Pulmonary infiltrate on radiologic exam (Chronic) Hypocalcemia (Chronic) Essential hypertension (Chronic) Carotid artery stenosis (Chronic) Prediabetes (Chronic) History of open reduction and internal fixation (ORIF) procedure (Chronic) History of cataract surgery (Chronic) History of hysterectomy (Chronic) History of ankle surgery (Chronic) History of total bilateral knee replacement (Chronic) History of knee surgery (Chronic) History of cholecystectomy (Chronic) History of appendectomy (Chronic) History of colonoscopy (Chronic 09/29/15) Congestion of upper respiratory tract (Chronic) Cough (Chronic) Wheezing (Chronic) Joint swelling (Chronic) Joint pain (Chronic) Itching (Chronic) Dry skin (Chronic) Sleep disturbance (Chronic) Rhonchi (Chronic) Decreased breath sounds (Chronic) Hypercapnic respiratory failure (Chronic) Pneumonia (Chronic) Ischemia (Chronic) Dyspnea (Chronic) Difficulty walking (Chronic) Chronically ill (Chronic) Gait difficulty (Chronic) BMI 20.0-20.9, adult (Chronic) Pain in left knee (Chronic) Cellulitis of lower extremity (Chronic) Right foot pain (Chronic) Depression (Chronic) Glaucoma (Chronic) Insomnia (Chronic) Medical History Acute exacerbation of chronic obstructive airways disease Anemia Anxiety Asthma with exacerbation Bipolar disorder BMI 20.0-20.9, adult Carotid artery stenosis Cellulitis of lower extremity Chronically ill Congestion of upper respiratory tract COPD (chronic obstructive pulmonary disease) with acute bronchitis Cough Decreased breath sounds Dehiscence of wound Depression Difficulty walking Dry skin Dyspnea Elbow laceration Essential hypertension Fall Guy hematuria Gait difficulty Glaucoma Hypercapnic respiratory failure Hypocalcemia Hypothyroidism Hypoxia Insomnia Ischemia Itching Joint pain Joint swelling Laceration Left elbow pain Left lower lobe pulmonary infiltrate Muscle ache Muscle weakness Neck pain Pain in left knee Pneumonia Prediabetes Pruritus of skin Pulmonary infiltrate on radiologic exam Respiratory failure with hypoxia and hypercapnia Restless legs Rhonchi Right foot pain Sleep disturbance SOB (shortness of breath) Tremor Urinary tract infection Wheezing Surgical History History of ankle surgery right foot History of appendectomy History of cataract surgery History of cholecystectomy History of colonoscopy (09/29/15) History of hysterectomy History of knee surgery History of open reduction and internal fixation (ORIF) procedure femur rodding History of total bilateral knee replacement Family History Mother , Age 97 Cancer Hypertension Father , Age 97 Bipolar affect, depressed Cancer Hypertension Sister Bipolar affect, depressed Social History Smoking Status: Never smoker Alcohol Intake Frequency: a few times a month Substance Use: does not use Exam Narrative Narrative: Narrative: General Limitations: no limitations General appearance: Present alert and in no apparent distress; Absent anxious, appears intoxicated or sleepy Head Head: Present atraumatic and normocephalic Eye Eye: Present PERRL, EOMI and visual rod intact; Absent scleral icterus or nystagmus ENT ENT: Present mucous membranes moist; Absent nasal congestion Neck Neck: Present full ROM; Absent tenderness Chest Chest: Present normal inspection, symmetric chest wall rise and tenderness Respiratory Respiratory: Present normal lung sounds bilaterally; Absent respiratory distress or accessory muscle use Cardiovascular Cardiovascular: Present regular rate, normal rhythm and normal heart sounds Adbominal Abdominal: Present soft and normal bowel sounds; Absent distention or tenderness Extremities Extremities: Present normal inspection and full ROM; Absent tenderness Back Back: Present normal inspection and full ROM; Absent tenderness Neurological Neurological: Present alert, oriented X3, reflexes normal and other (Ataxia in bilateral upper extremities, intermittent jerking movements of all 4 extremities and neck noted, dysarthria); Absent CN II-XII intact (Mild droop on left) or motor sensory deficit Psychiatric Psychiatric: Present normal affect, normal mood and other (Speech somewhat pressured) Skin Skin: Present warm (WNL), dry and normal color Course Vital Signs Vital signs: Vital Signs Temperature 98.1 F 09/16/21 09:56 Pulse Rate 86 09/16/21 09:56 Respiratory Rate 18 09/16/21 09:56 Blood Pressure 129/66 09/16/21 09:56 Pulse Oximetry (%) 100 09/16/21 09:56 Oxygen Delivery Method 09/16/21 09:56 Temperature 98.7 F 09/17/21 04:06 Pulse Rate 64 09/17/21 04:07 Respiratory Rate 19 09/17/21 04:07 Blood Pressure 139/60 09/17/21 04:07 Pulse Oximetry (%) 96 09/17/21 04:07 Oxygen Delivery Method 09/16/21 20:00 [facility] Narrative Medical decision making narrative: Narrative: Patient is a an 89-year-old female with a complex past medical history, but unfortunately patient does have some difficulty giving history as well as what medication she is taking currently, who presents to the emergency department due to concern for stroke. Due to an NIH stroke scale of 4 and patient's story that the symptoms are new within the last 24 hours a stroke alert was called. Patient was taken to the CT scanner. CT scan without contrast, as well as CT angio head and neck were performed. I spoke with teleneurology and felt that the patient symptoms were due to chronic extrapyramidal symptoms from previous medication usage. With discussion and potential concerns for TIA MRI was recommended. Given some concern for TIA I also discussed the patient with Dr. Hull. He requested that I speak to patient and ask for her thoughts on admission versus discharge. Patient requests admission for observation overnight. MRI was performed and does not show acute stroke. Patient to be admitted by Dr. Hull. Lab Data Result diagrams: 09/17/21 05:30 09/17/21 05:30 Labs: Lab Results 09/16/21 09/16/21 09/16/21 Range/Units 10:08 10:08 10:08 WBC 8.4 (4.5-11.0) K/mcL RBC 3.61 (3.59-5.38) M/mcL Hgb 11.6 (11.2-15.7) g/dL Hct 34.9 (34.1-44.9) % MCV 96.7 (80.0-100.0) fL MCH 32.1 (26.0-34.0) pg MCHC 33.2 (31.0-36.0) g/dL RDW 12.9 (11.5-14.5) % Plt Count 257 (140-440) K/mcL MPV 10.1 (7.4-10.4) fL Immature Gran % (Auto) 0.4 (0.0-0.5) % Neut % (Auto) 62.2 (38.0-78.0) % Lymph % (Auto) 16.1 (15.5-49.0) % [place] % (Auto) 10.8 (1.0-12.0) % Eos % (Auto) 10.3 H (0.0-7.0) % Baso % (Auto) 0.2 (0.0-2.0) % Lymph # (Auto) 1.36 L (1.50-4.80) K/mcL [place] # (Auto) 0.91 H (0.10-0.90) K/mcL Eos # (Auto) 0.87 H (0.00-0.70) K/mcL Baso # (Auto) 0.02 (0.00-0.30) K/mcL Immature Gran # 0.03 (0.00-0.05) K/mcl Absolute Neutrophils 5.28 (1.80-8.00) K/mcL POC PT (11.9-14.5) PT 12.5 (11.9-14.5) sec POC INR (0.8-1.2) INR 0.9 (0.9-1.1) APTT 31.4 (20.0-37.0) sec Sodium 134 (133-145) mmol/L Potassium 4.1 (3.3-5.1) mmol/L Chloride 98 (96-108) mmol/L Carbon Dioxide 25 (22-30) mmol/L Anion Gap 11.0 (8.0-16.0) BUN 23 (8-23) mg/dL Creatinine 1.1 (0.6-1.1) mg/dL GFR Calculation 45 Glucose 110 H (70-105) mg/dL Calcium 8.7 (8.6-10.4) mg/dL Total Bilirubin 0.4 (0.1-1.0) mg/dL AST 30 (<32) U/L ALT 19 (<40) U/L Alkaline Phosphatase 87 (39-117) U/L Troponin T (<0.03) ng/mL Total Protein 6.9 (5.9-8.4) gm/dL Albumin 4.1 (3.2-5.2) gm/dL Globulin 2.8 (2.2-3.7) gm/dL Albumin/Globulin Ratio 1.5 (1.0-2.3) Urine Color Urine Appearance (Clear) Urine pH (5.0-9.0) Ur Specific [place] (1.000-1.035) Urine Protein (Negative) mg/dL Urine Glucose (UA) (Negative) mg/dL Urine Ketones (Negative) mg/dL Urine Occult Blood (Negative) adan/mcL Urine Nitrate (Negative) Urine Bilirubin (Negative) mg/dL Urine Urobilinogen mg/dL Ur Leukocyte Esterase (Negative) /uL Urine RBC (0-3) /hpf Urine WBC (0-4) /hpf Ur Squamous Epith Cells (0-4) /hpf Ur Transition Epith Cell (0-2) /hpf Other Crystals (None) /hpf Urine Bacteria (0) /hpf Ur Culture Indicated? 09/16/21 09/16/21 09/16/21 Range/Units 10:08 10:53 14:01 WBC (4.5-11.0) K/mcL RBC (3.59-5.38) M/mcL Hgb (11.2-15.7) g/dL Hct (34.1-44.9) % MCV (80.0-100.0) fL MCH (26.0-34.0) pg MCHC (31.0-36.0) g/dL RDW (11.5-14.5) % Plt Count (140-440) K/mcL MPV (7.4-10.4) fL Immature Gran % (Auto) (0.0-0.5) % Neut % (Auto) (38.0-78.0) % Lymph % (Auto) (15.5-49.0) % [place] % (Auto) (1.0-12.0) % Eos % (Auto) (0.0-7.0) % Baso % (Auto) (0.0-2.0) % Lymph # (Auto) (1.50-4.80) K/mcL [place] # (Auto) (0.10-0.90) K/mcL Eos # (Auto) (0.00-0.70) K/mcL Baso # (Auto) (0.00-0.30) K/mcL Immature Gran # (0.00-0.05) K/mcl Absolute Neutrophils (1.80-8.00) K/mcL POC PT 11.8 L (11.9-14.5) PT (11.9-14.5) sec POC INR 1.0 (0.8-1.2) INR (0.9-1.1) APTT (20.0-37.0) sec Sodium (133-145) mmol/L Potassium (3.3-5.1) mmol/L Chloride (96-108) mmol/L Carbon Dioxide (22-30) mmol/L Anion Gap (8.0-16.0) BUN (8-23) mg/dL Creatinine (0.6-1.1) mg/dL GFR Calculation Glucose (70-105) mg/dL Calcium (8.6-10.4) mg/dL Total Bilirubin (0.1-1.0) mg/dL AST (<32) U/L ALT (<40) U/L Alkaline Phosphatase (39-117) U/L Troponin T < 0.01 (<0.03) ng/mL Total Protein (5.9-8.4) gm/dL Albumin (3.2-5.2) gm/dL Globulin (2.2-3.7) gm/dL Albumin/Globulin Ratio (1.0-2.3) Urine Color Yellow Urine Appearance Clear (Clear) Urine pH 7.0 (5.0-9.0) Ur Specific [place] 1.015 (1.000-1.035) Urine Protein Negative (Negative) mg/dL Urine Glucose (UA) Negative (Negative) mg/dL Urine Ketones Negative (Negative) mg/dL Urine Occult Blood Trace-intact A (Negative) adan/mcL Urine Nitrate Negative (Negative) Urine Bilirubin Negative (Negative) mg/dL Urine Urobilinogen Normal mg/dL Ur Leukocyte Esterase Negative (Negative) /uL Urine RBC 2 (0-3) /hpf Urine WBC 3 (0-4) /hpf Ur Squamous Epith Cells 1 (0-4) /hpf Ur Transition Epith Cell < 1 (0-2) /hpf Other Crystals None (None) /hpf Urine Bacteria None (0) /hpf Ur Culture Indicated? No EKG Data EKG #1: EKG results narrative: Normal sinus rhythm with a rate of 82, T wave flattening in lead I, T wave inversion lead aVL, normal OR and QTC, and absence of ST elevation or depression Discharge Plan Patient/Caregiver Discharge Instructions Pt seen by [employer]/PA only: No Clinical Impression: Imbalance, Ataxia, Dysarthria Patient Disposition: Xfer As Inpt ([facility]) Discharge Date/Time: 09/16/21 17:03
--- NOTE | 2021-09-16 10:33 | Cat Scan Report ---
INDICATION: Neuro Deficit/acute stroke COMPARISON: None. TECHNIQUE: Axial noncontrast-enhanced images through the brain. Sagittally and coronally reformatted images. FINDINGS: Cerebral hemispheres:Negative. No intra-axial abnormality. No intra-axial hematoma. No localized mass effect. Mild cerebral atrophy is considered to be within normal limits for age. There is mild white matter abnormality consistent with small vessel ischemic change Brainstem and cerebellum:No intra-axial abnormality Extra-axial:No acute hemorrhage. No subdural or epidural hematoma. No subarachnoid hemorrhage. Basilar cisterns are normal Calvarial:No calvarial fracture. No lytic lesion Temporal bones are negative. No destructive lesions Soft tissue, orbits, sinuses:Extensive inflammatory disease of the paranasal sinuses. There is nearly confluent soft tissue thickening within the frontal sinuses and ethmoid sinuses bilaterally. There is marked mucosal thickening within sphenoid air cells. Maxillary sinuses are not imaged IMPRESSION: 1. No intracranial abnormality. No intracranial hemorrhage 2. Inflammatory disease of the paranasal sinuses The exam was performed using radiation dose optimization techniques including, but not limited to, automated exposure control, adjustment of the mA and/or kV according to patient size and use of iterative reconstruction technique. Interpreted and Authenticated by: Brent Klein 09/16/21
[2021-09-16 10:44] LABS: Basophils # (Auto) 0.02 K/mcL (0.00-0.30); Basophils % (Auto) 0.2 % (0.0-2.0); Eosinophils # (Auto) 0.87 K/mcL (0.00-0.70); Eosinophils % (Auto) 10.3 % (0.0-7.0); Hematocrit 34.9 % (34.1-44.9); Hemoglobin 11.6 g/dL (11.2-15.7); Lymphocytes # (Auto) 1.36 K/mcL (1.50-4.80); Lymphocytes % (Auto) 16.1 % (15.5-49.0); Mean Cell Volume 96.7 fL (80.0-100.0); Mean Corpuscular HGB Conc 33.2 g/dL (31.0-36.0); Mean Platelet Volume 10.1 fL (7.4-10.4); Monocytes # (Auto) 0.91 K/mcL (0.10-0.90); Monocytes % (Auto) 10.8 % (1.0-12.0); Neutrophils % (Auto) 62.2 % (38.0-78.0); Platelet Count 257 K/mcL (140-440); RBC 3.61 M/mcL (3.59-5.38); Red Cell Distribution Width 12.9 % (11.5-14.5); WBC 8.4 K/mcL (4.5-11.0)
[2021-09-16 10:54] LABS: Partial Thromboplastin Time 31.4 sec (20.0-37.0)
[2021-09-16 10:55] LABS: INR 0.9 (0.9-1.1); Prothrombin Time 12.5 sec (11.9-14.5)
[2021-09-16] MEDS ORDERED: ASPIRIN 81 MG TAB.CHEW CHEWED ONE (10:55)
[2021-09-16 10:56] LABS: POC Pro Time 11.8 (11.9-14.5)
[2021-09-16 11:05] LABS: ALT/SGPT 19 U/L (<40); AST/SGOT 30 U/L (<32); Albumin 4.1 gm/dL (3.2-5.2); Albumin/Globulin Ratio 1.5 (1.0-2.3); Alkaline Phosphatase 87 U/L (39-117); Bilirubin,Total 0.4 mg/dL (0.1-1.0); Blood Urea Nitrogen 23 mg/dL (8-23); Calcium 8.7 mg/dL (8.6-10.4); Carbon Dioxide 25 mmol/L (22-30); Chloride 98 mmol/L (96-108); Globulin 2.8 gm/dL (2.2-3.7); Glomerular Filtration Rate 45; Glucose 110 mg/dL (70-105)
[2021-09-16] MEDS ORDERED: clonazePAM 0.5 MG TABLET PO ONE (11:24)
--- NOTE | 2021-09-16 11:32 | Cat Scan Report ---
INDICATION: Concern for stroke COMPARISON: None. TECHNIQUE: Axial images were obtained through the upper chest, neck, and head during arterial phase. MIP and CPR reformatted images. 80ml Isovue 370 injected intravenously. FINDINGS: AORTIC ARCH:Minimal calcification of the aortic arch. Origins of the left subclavian artery, left common carotid artery, innominate artery are normal. Origin of the right common carotid artery is normal. There is mild noncalcified plaque in the right subclavian artery, just proximal to the origin of the right vertebral artery. Vertebral artery origins are normal. CAROTID ARTERIES:Right: Right common carotid artery is negative. No stenosis or occlusion. No significant calcified or noncalcified plaque at the origin of the right internal carotid artery. No significant stenosis or evidence for ulceration. Right internal carotid artery is otherwise negative. No stenosis or occlusion. No fibromuscular dysplasia or dissection. Left: Left common carotid artery is negative. No stenosis or occlusion Minimal calcified plaque at the origin of left internal carotid artery. No significant stenosis. No evidence for ulceration. Left internal carotid artery is otherwise negative. There is no stenosis or occlusion. No dissection or evidence for fibromuscular dysplasia VERTEBRAL ARTERIES:Vertebral arteries are patent without stenosis or occlusion [place]:[Cavernous and supraclinoid internal carotid arteries are negative. No significant stenosis or occlusion. M1 segments of the middle cerebral arteries and A1 segments of the anterior cerebral arteries are negative. Intracranial vertebral arteries and basilar artery are negative. Posterior cerebral arteries and superior cerebellar arteries are negative] INTRACRANIAL CIRCULATION:No intracranial branch occlusion. No arteriovenous malformation or aneurysm No dural sinus occlusion UPPER CHEST:No pulmonary parenchymal mass or focal infiltrate. Superior mediastinum is negative NECK AND MAXILLOFACIAL:No solid or cystic soft tissue mass. No pathologic lymphadenopathy. Confluent soft tissue density within the left maxillary sinus. Only mild mucosal thickening in the right maxillary sinus. There is extensive mucosal thickening within sphenoid, ethmoid, frontal sinuses bilaterally. There is no discrete mass. No bone destruction. BRAIN:No acute intracranial hemorrhage. No focal attenuation abnormalities or pathologic contrast enhancement. IMPRESSION: 1. Small noncalcified plaque in the right subclavian artery, just proximal to the origin of the right vertebral artery 2. Minimal calcified plaque in the proximal left internal carotid artery. Internal carotid arteries are otherwise negative. No stenosis or ulceration 3. No intracranial abnormality. No branch occlusion. The exam was performed using radiation dose optimization techniques including, but not limited to, automated exposure control, adjustment of the mA and/or kV according to patient size and use of iterative reconstruction technique. Interpreted and Authenticated by: Brent Klein 09/16/21
--- NOTE | 2021-09-16 14:31 | Magnetic Resonance Report ---
INDICATION: Possible TIA/stroke TECHNIQUE: Limited stroke protocol. Sagittal T1 weighted images. Axial T2 FLAIR and diffusion-weighted images. COMPARISON: Previous CT and CTA dated 09/16/2021 FINDINGS: There is no restricted diffusion. No acute infarction. Cerebral hemispheres, brainstem, cerebellum are negative. No focal signal abnormality on FLAIR images. No localized mass effect. No acute intra-axial quality. Incidental note is made of extensive inflammatory disease in the paranasal sinuses. IMPRESSION: 1. Negative examination. No restricted diffusion. No acute infarction 2. Extensive inflammatory disease in the paranasal sinuses Interpreted and Authenticated by: Brent Klein 09/16/21
--- NOTE | 2021-09-16 14:35 | Internal Med History&Physical ---
HPI History of Present Illness Patient information: Note initiated : 09/16/21 at 2:32 pm Service Date, if different from initiated Date: [] Patient: Jaiden Acosta a 89 y/o F admitted on for possible stroke. Chief Complaint: [] History of present illness: Ms. 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 Patient is accompanied with her . Per she has been increasingly stressed out over the last few days and they are currently staying at a hotel in the process of selling their home in [place]. This morning she just did not not feel right and became extremely difficult to walk due to loss of balance. She denies thunderclap headache, double vision, unilateral weakness, incontinence, loss of consciousness or fall. She denies chest pain, palpitation Initial work-up in the ER was unremarkable. Stroke neurology was consulted after negative CT CTA head neck. Per neurology unlikely an acute CVA and recommended aspirin/overnight observation. Subsequently hospitalist service consulted At the time of evaluation patient is accompanied with her . She was able to answer most the question. She is restless fidgety with involuntary movement trunk and extremities. She appears anxious. Endorses to history as above. Denies changes in medication or missing doses. Review of Systems Review of systems: 10 point review of system was performed and is negative except as above PFSH PFSH All Active Problems (Updated 09/16/21 @ 14:43 by Gary Lake MD) Imbalance (Acute) Ataxia (Acute) Dysarthria (Acute) Tremor (Chronic) Neck pain (Chronic) Muscle weakness (Chronic) Muscle ache (Chronic) Left elbow pain (Chronic) Guy hematuria (Chronic) Urinary tract infection (Chronic) Chronic obstructive pulmonary disease with (acute) exacerbation (Chronic) Hypoxia (Chronic) Elbow laceration (Chronic) Fall (Chronic) Dehiscence of wound (Chronic) Laceration (Chronic) COPD (chronic obstructive pulmonary disease) with acute bronchitis (Chronic) Asthma exacerbation, mild (Chronic) Left lower lobe pulmonary infiltrate (Chronic) Asthma with exacerbation (Chronic) Anxiety (Chronic) SOB (shortness of breath) (Chronic) Acute exacerbation of chronic obstructive airways disease (Chronic) Respiratory failure with hypoxia and hypercapnia (Chronic) COPD (chronic obstructive pulmonary disease) (Chronic) 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) Pruritus of skin (Chronic) Bipolar disorder (Chronic) Anemia (Chronic) Restless legs (Chronic) Hypothyroidism (Chronic) Pulmonary infiltrate on radiologic exam (Chronic) Hypocalcemia (Chronic) Essential hypertension (Chronic) Carotid artery stenosis (Chronic) Prediabetes (Chronic) History of open reduction and internal fixation (ORIF) procedure (Chronic) History of cataract surgery (Chronic) History of hysterectomy (Chronic) History of ankle surgery (Chronic) History of total bilateral knee replacement (Chronic) History of knee surgery (Chronic) History of cholecystectomy (Chronic) History of appendectomy (Chronic) History of colonoscopy (Chronic 09/29/15) Congestion of upper respiratory tract (Chronic) Cough (Chronic) Wheezing (Chronic) Joint swelling (Chronic) Joint pain (Chronic) Itching (Chronic) Dry skin (Chronic) Sleep disturbance (Chronic) Rhonchi (Chronic) Decreased breath sounds (Chronic) Hypercapnic respiratory failure (Chronic) Pneumonia (Chronic) Ischemia (Chronic) Dyspnea (Chronic) Difficulty walking (Chronic) Chronically ill (Chronic) Gait difficulty (Chronic) BMI 20.0-20.9, adult (Chronic) Pain in left knee (Chronic) Cellulitis of lower extremity (Chronic) Right foot pain (Chronic) Depression (Chronic) Glaucoma (Chronic) Insomnia (Chronic) Medical History Acute exacerbation of chronic obstructive airways disease Anemia Anxiety Asthma with exacerbation Bipolar disorder BMI 20.0-20.9, adult Carotid artery stenosis Cellulitis of lower extremity Chronically ill Congestion of upper respiratory tract COPD (chronic obstructive pulmonary disease) with acute bronchitis Cough Decreased breath sounds Dehiscence of wound Depression Difficulty walking Dry skin Dyspnea Elbow laceration Essential hypertension Fall Guy hematuria Gait difficulty Glaucoma Hypercapnic respiratory failure Hypocalcemia Hypothyroidism Hypoxia Insomnia Ischemia Itching Joint pain Joint swelling Laceration Left elbow pain Left lower lobe pulmonary infiltrate Muscle ache Muscle weakness Neck pain Pain in left knee Pneumonia Prediabetes Pruritus of skin Pulmonary infiltrate on radiologic exam Respiratory failure with hypoxia and hypercapnia Restless legs Rhonchi Right foot pain Sleep disturbance SOB (shortness of breath) Tremor Urinary tract infection Wheezing Surgical History History of ankle surgery right foot History of appendectomy History of cataract surgery History of cholecystectomy History of colonoscopy (09/29/15) History of hysterectomy History of knee surgery History of open reduction and internal fixation (ORIF) procedure femur rodding History of total bilateral knee replacement Family History Mother , Age 97 Cancer Hypertension Father , Age 97 Bipolar affect, depressed Cancer Hypertension Sister Bipolar affect, depressed Social History caregiver/support person: Yes household members: spouse housing: house lives independently: Yes marital status: education level: college service: No occupational status: retired occupation: [employer] pets and animals: Yes leisure activities: hunting, fishing and other other: 2 biological children and 2 step children physical activity: walking frequency: 1-2 times per week duration: < 15 minutes/day smoking status: Never smoker alcohol intake frequency: a few times a month substance use type: does not use oni/hoahaoism: Judaism special oni needs: No MEDS/ALLERGIES Home Medications and Allergies Home Medications Medication Instructions Recorded Confirmed Type levothyroxine 50 mcg tablet 1 tab PO DAILY 04/25/19 08/23/21 History cholecalciferol (vitamin D3) 1 tab PO QDAY 04/13/20 08/23/21 History fluoxetine 40 mg capsule 40 mg PO QDAY 06/17/20 08/23/21 History bimatoprost 0.01 % eye drops 1 drp ophthalmic (eye) DAILY 06/19/20 08/23/21 History (Lisa) pramipexole 1 mg tablet 1 mg PO HS 06/19/20 08/23/21 History telmisartan 80 1 tab PO DAILY 06/19/20 08/23/21 History mg-hydrochlorothiazide 12.5 mg tablet timolol maleate 0.5 % eye drops 1 drp ophthalmic (eye) DAILY 06/19/20 08/23/21 History albuterol sulfate 1.25 mg/3 mL 1.25 mg (3 mL) inhalation Q4H PRN 06/22/20 08/23/21 Rx solution for nebulization shortness of breath or wheezing #90 mL hydrocodone 5 mg-acetaminophen 325 1 tab PO Q6H PRN pain #30 tabs 09/09/20 08/23/21 Rx mg tablet ascorbic acid (vitamin C) 1 tab PO QDAY 11/24/20 08/23/21 History fexofenadine 180 mg tablet 180 mg PO BID 11/24/20 08/23/21 History (Yari Allergy) guaifenesin [Mucinex] PO 11/24/20 08/23/21 History triamcinolone acetonide 55 mcg See Rx Instructions intranasal 11/24/20 08/23/21 History nasal spray aerosol (Nasacort) .COMPLEX alprazolam 1 mg tablet 1 mg PO QHS PRN anxiety #14 tabs 03/29/21 08/23/21 Rx albuterol sulfate 90 mcg/actuation 2 puff inhalation .Q4-6H PRN 05/12/21 08/23/21 Rx aerosol inhaler (ProAir HFA) shortness of breath or wheezing #8.5 grams fluticasone propionate 115 2 puff inhalation BID #12 grams 05/12/21 08/23/21 Rx mcg-salmeterol 21 mcg/actuation HFA inhaler (Advair HFA) tiotropium bromide 2.5 2 puff inhalation DAILY #4 grams 05/12/21 08/23/21 Rx mcg/actuation mist for inhalation (Spiriva Respimat) quetiapine 25 mg tablet 25 mg PO HS for insomnia #60 tabs 06/21/21 08/23/21 Rx imipramine HCl 50 mg tablet 50 mg PO HS for insomnia #30 tabs 08/02/21 08/23/21 Rx duloxetine 60 mg capsule,delayed 60 mg PO DAILY Mood #30 caps 08/09/21 08/23/21 Rx release hydroxyzine HCl 25 mg tablet See Rx Instructions .Route 08/09/21 08/23/21 Rx .COMPLEX #60 tabs lamotrigine 150 mg tablet 150 mg PO QDAY Mood #30 tabs 08/09/21 08/23/21 Rx Allergies Allergy/AdvReac Type Severity Reaction Status Date / Time ciprofloxacin [From Cipro] Allergy Unknown Unknown Verified 08/23/21 10:46 egg AdvReac Intermediate Gastrointestinal Verified 08/23/21 10:46 Upset lactase [From Dairy Aid] AdvReac Intermediate Gastrointestinal Verified 08/23/21 10:46 Upset codeine [CODEINE] AdvReac Mild VOMITING Verified 08/23/21 10:46 milk AdvReac Unknown unknown Verified 08/23/21 10:46 Sugars, Metabolically Active AdvReac Unknown Unknown Verified 08/23/21 10:46 Tomato AdvReac Unknown Unknown Verified 08/23/21 10:46 EXAM Constitutional Vitals: Temp Pulse Resp BP Pulse Ox O2 Del Method 98.1 F 85 20 131/52 97 09/16/21 09:56 09/16/21 12:02 09/16/21 13:26 09/16/21 13:26 09/16/21 12:02 09/16/21 09:56 Exam: Head normocephalic Oral cavity moist No ear or nose discharge Eye no subconjunctival pallor, movement symmetrical S1-S2 occasionally irregular Nonlabored breathing Nondistended nontender abdomen Lower extremity no cyanosis clubbing or joint swelling Skin no suspicious lesion Psych anxious but no hallucination Neuro involuntary extremity and truncal movement, normal higher function on limited neuro exam DATA Data Completed and Pending Labs: Labs from last 24 hours 09/16/21 09/16/21 09/16/21 14:01 10:53 10:08 WBC RBC Hgb Hct MCV MCH MCHC RDW Plt Count MPV Immature Gran % (Auto) Neut % (Auto) Lymph % (Auto) [place] % (Auto) Eos % (Auto) Baso % (Auto) Lymph # (Auto) [place] # (Auto) Eos # (Auto) Baso # (Auto) Immature Gran # Absolute Neutrophils POC PT 11.8 L PT POC INR 1.0 INR APTT Sodium Potassium Chloride Carbon Dioxide Anion Gap BUN Creatinine GFR Calculation Glucose Calcium Total Bilirubin AST ALT Alkaline Phosphatase Troponin T < 0.01 Total Protein Albumin Globulin Albumin/Globulin Ratio Urine Color Pending Urine Appearance Pending Urine pH Pending Ur Specific [place] Pending Urine Protein Pending Urine Glucose (UA) Pending Urine Ketones Pending Urine Occult Blood Pending Urine Nitrate Pending Urine Bilirubin Pending Urine Urobilinogen Pending Ur Leukocyte Esterase Pending 09/16/21 09/16/21 09/16/21 10:08 10:08 10:08 WBC 8.4 RBC 3.61 Hgb 11.6 Hct 34.9 MCV 96.7 MCH 32.1 MCHC 33.2 RDW 12.9 Plt Count 257 MPV 10.1 Immature Gran % (Auto) 0.4 Neut % (Auto) 62.2 Lymph % (Auto) 16.1 [place] % (Auto) 10.8 Eos % (Auto) 10.3 H Baso % (Auto) 0.2 Lymph # (Auto) 1.36 L [place] # (Auto) 0.91 H Eos # (Auto) 0.87 H Baso # (Auto) 0.02 Immature Gran # 0.03 Absolute Neutrophils 5.28 POC PT PT 12.5 POC INR INR 0.9 APTT 31.4 Sodium 134 Potassium 4.1 Chloride 98 Carbon Dioxide 25 Anion Gap 11.0 BUN 23 Creatinine 1.1 GFR Calculation 45 Glucose 110 H Calcium 8.7 Total Bilirubin 0.4 AST 30 ALT 19 Alkaline Phosphatase 87 Troponin T Total Protein 6.9 Albumin 4.1 Globulin 2.8 Albumin/Globulin Ratio 1.5 Urine Color Urine Appearance Urine pH Ur Specific [place] Urine Protein Urine Glucose (UA) Urine Ketones Urine Occult Blood Urine Nitrate Urine Bilirubin Urine Urobilinogen Ur Leukocyte Esterase A/P Narrative A/P Narrative: * TIA symptoms, await echo, negative neuroimaging including CT head, CTA head neck, MRI brain. Overnight observation admit/cardiac monitoring/neur ochecks/aspirin. Stroke neurology Recommends antiplatelet. Continue work-up * History of asthma with hypereosinophilic pulmonary syndrome continue bronchodilators * Anxiety disorder on alprazolam/duloxetine/fluoxetine/imipramine * Hypothyroidism thyroxine * Restless leg on pramipexole * Hypertension on ARB/thiazide * Glaucoma on timolol/Lumigan Plan * Observation admit * Stroke work-up - echocardiogram/MRI brain * neurochecks/cardiac monitoring * Pre-existing medical condition management on home medications * PT OT nutrition support Time Spent With Patient Time: Total time spent is greater than 50% in coordination of care (as documented) at patient's floor/unit and/or counseling patient: Total time spent with greater than 50% in coordination of care (as documented) at patient's floor/unit and/or counseling patient:: 50 - 70 minutes
[2021-09-16 15:02] LABS: Appearance,Urine Clear (Clear); Bilirubin,Urine Negative (Negative); Color,Urine Yellow; Culture Indicated,Urine No; Glucose,Urine (UA) Negative (Negative); Ketones,Urine Negative (Negative); Leukocyte Esterase,Urine Negative /uL (Negative); Nitrate,Urine Negative (Negative); Protein,Urine Negative (Negative); Specific Gravity,Urine 1.015 (1.000-1.035); Urine Blood Trace-intact ery/mcL (Negative); Urine RBC 2 /hpf (0-3); Urine Squamous Epithelial Cell 1 /hpf (0-4); Urine Transitional Epi Cells < 1 /hpf (0-2); Urine WBC 3 /hpf (0-4); Urobilinogen,Urine Normal
[2021-09-16] MEDS ORDERED: 0.9 % SODIUM CHLORIDE 1,000 ML IV SCH (17:09)
[2021-09-16] MEDS ORDERED: ACETAMINOPHEN 650 MG/65 ML BAG IV PRN (17:09)
[2021-09-16] MEDS ORDERED: DEXTROSE 50% 50 ML VIAL IV PRN (17:09)
[2021-09-16] MEDS ORDERED: ACETAMINOPHEN 325 MG TABLET PO PRN (17:09)
[2021-09-16] MEDS ORDERED: METOPROLOL TARTRATE 5 MG/5 ML VIAL IV PRN (17:09)
[2021-09-16] MEDS ORDERED: POTASSIUM CHLORIDE 40 MEQ in DEXTROSE 5% IN WATER 500 ML IV PRN (17:09)
[2021-09-16] MEDS ORDERED: ONDANSETRON 4 MG ODT TABLET SL PRN (17:09)
[2021-09-16] MEDS ORDERED: BISACODYL 10 MG SUPP.RECT PR PRN (17:09)
[2021-09-16] MEDS ORDERED: MELATONIN 3 MG TABLET PO PRN (17:09)
[2021-09-16] MEDS ORDERED: POLYETHYLENE GLYCOL 3350 17 GM PACKET PO PRN (17:09)
[2021-09-16] MEDS ORDERED: DEXTROSE 31 GM ORAL.SUSP PO PRN (17:09)
[2021-09-16] MEDS ORDERED: MAGNESIUM SULFATE 2 GM/50 ML BAG IV PRN (17:09)
[2021-09-16] MEDS ORDERED: ONDANSETRON 4 MG/2 ML VIAL IV PRN (17:09)
[2021-09-16] MEDS: INSULIN LISPRO 1 UNIT/0.01 ML UNIT SQ SCH ×2 (17:56→21:42)
[2021-09-16] MEDS ORDERED: SENNOSIDES/DOCUSATE SODIUM 1 TAB TABLET PO SCH (21:00)
[2021-09-16] MEDS ORDERED: QUEtiapine 25 MG TABLET PO ONE (21:37)
[2021-09-16] MEDS ORDERED: PRAMIPEXOLE 1 MG TABLET PO ONE (21:37)
[2021-09-16] MEDS: DOCUSATE SODIUM 100 MG CAPSULE PO SCH (21:41)
[2021-09-16] MEDS: HEPARIN 5,000 UNIT/ML VIAL SQ SCH (21:48)
[2021-09-16] MEDS: 0.9 % SODIUM CHLORIDE 10 ML SYRINGE IV SCH (21:49)
[2021-09-17] MEDS: 0.9 % SODIUM CHLORIDE 10 ML SYRINGE IV SCH (06:03)
[2021-09-17 07:07] LABS: Basophils # (Auto) 0.01 K/mcL (0.00-0.30); Basophils % (Auto) 0.2 % (0.0-2.0); Eosinophils # (Auto) 0.91 K/mcL (0.00-0.70); Eosinophils % (Auto) 15.5 % (0.0-7.0); Hematocrit 34.2 % (34.1-44.9); Hemoglobin 10.9 g/dL (11.2-15.7); Lymphocytes # (Auto) 1.36 K/mcL (1.50-4.80); Lymphocytes % (Auto) 23.1 % (15.5-49.0); Mean Corpuscular HGB Conc 31.9 g/dL (31.0-36.0); Mean Platelet Volume 10.2 fL (7.4-10.4); Monocytes # (Auto) 0.73 K/mcL (0.10-0.90); Monocytes % (Auto) 12.4 % (1.0-12.0); Neutrophils % (Auto) 48.5 % (38.0-78.0); Platelet Count 231 K/mcL (140-440); RBC 3.42 M/mcL (3.59-5.38); Red Cell Distribution Width 13.1 % (11.5-14.5); WBC 5.9 K/mcL (4.5-11.0)
[2021-09-17 07:17] LABS: ALT/SGPT 16 U/L (<40); AST/SGOT 24 U/L (<32); Albumin 3.6 gm/dL (3.2-5.2); Albumin/Globulin Ratio 1.5 (1.0-2.3); Alkaline Phosphatase 76 U/L (39-117); Bilirubin,Direct < 0.2 mg/dL (0-0.3); Bilirubin,Total 0.3 mg/dL (0.1-1.0); Blood Urea Nitrogen 21 mg/dL (8-23); Calcium 8.5 mg/dL (8.6-10.4); Carbon Dioxide 24 mmol/L (22-30); Chloride 103 mmol/L (96-108); Globulin 2.4 gm/dL (2.2-3.7); Glomerular Filtration Rate 57; Glucose 94 mg/dL (70-105); Lactate Dehydrogenase 240 U/L (135-225); Phosphorous 3.7 mg/dL (2.5-4.5); Triglycerides 65 mg/dL (<150)
--- NOTE | 2021-09-17 08:39 | Discharge Summary ---
Discharge Provider Provider IMPORTANT FOLLOW-UP INFORMATION FOR PCP: Patient information: Note initiated : 09/17/21 at 8:36 am Service Date, if different from initiated Date: [] Patient: Jaiden Acosta 89 y/o F admitted on 09/16/21 for possible stroke. Chief Complaint: [] Date of admission: 09/16/21 17:07 Discharge date: 09/17/21 Primary care physician: PCP No Consults: 09/16/21 Consult to Physician [CONS] Stat Comment: Consulting Provider: Henrry Hull Reason For Exam: Physician to Consult Consult to Physician [CONS] Stat Comment: Consulting Provider: Telestroke,Provider Reason For Exam: Physician to Consult COURSE Hospital Course Hospital course: Discharge diagnosis * TIA symptoms, fully resolved, negative neuroimaging including CT head, CTA head neck, MRI brain. Continue aspirin. Follow-up with PCP in 5 to 7 days * Vaginal bleed/spotting recommend outpatient gynecology follow-up * History of asthma with hypereosinophilic pulmonary syndrome continue bronchodilators * Anxiety disorder remained stable on home dose alprazolam/duloxetine/fluoxetine/imipramine * Hypothyroidism thyroxine * Restless leg on pramipexole * Hypertension on ARB/thiazide * Glaucoma on timolol/Lumigan Brief hospital course Ms. 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 Patient is accompanied with her . Per she has been increasingly stressed out over the last few days and they are currently staying at a hotel in the process of selling their home in [place]. This morning she just did not not feel right and became extremely difficult to walk due to loss of balance. She denies thunderclap headache, double vision, unilateral weakness, incontinence, loss of consciousness or fall. She denies chest pain, palpitation Initial work-up in the ER was unremarkable. Stroke neurology was consulted after negative CT CTA head neck. Per neurology unlikely an acute CVA and recommended aspirin/overnight observation. Subsequently hospitalist service consulted 09/17-patient doing well. No overnight events. Complains of intermittent vaginal spotting. Recommend outpatient follow-up with gynecology. No overnight fever chills. Feels a lot better since admission. Discharging advised to follow-up with PCP/gynecology Discharge diagnosis: TIA Time Spent with Patient Time attestation: Total time spent providing and/or coordinating discharge services: Time spent: Greater than 30 minutes EXAM Constitutional Vitals: Temp Pulse Resp BP Pulse Ox O2 Del Method 97.3 F 66 22 147/62 97 09/17/21 08:18 09/17/21 06:01 09/17/21 08:18 09/17/21 08:18 09/17/21 06:01 09/16/21 20:00 Discharge Data Data Completed and Pending Labs on day of discharge: Labs from last 24 hours 09/17/21 09/17/21 09/16/21 05:30 05:30 14:01 WBC 5.9 RBC 3.42 L Hgb 10.9 L Hct 34.2 MCV 100.0 MCH 31.9 MCHC 31.9 RDW 13.1 Plt Count 231 MPV 10.2 Immature Gran % (Auto) 0.3 Neut % (Auto) 48.5 Lymph % (Auto) 23.1 [place] % (Auto) 12.4 H Eos % (Auto) 15.5 H Baso % (Auto) 0.2 Lymph # (Auto) 1.36 L [place] # (Auto) 0.73 Eos # (Auto) 0.91 H Baso # (Auto) 0.01 Immature Gran # 0.02 Absolute Neutrophils 2.87 POC PT PT POC INR INR APTT Sodium 135 Potassium 4.7 Chloride 103 Carbon Dioxide 24 Anion Gap 8.0 BUN 21 Creatinine 0.9 GFR Calculation 57 Glucose 94 Uric Acid 5.0 Calcium 8.5 L Phosphorus 3.7 Magnesium 2.4 Total Bilirubin 0.3 Direct Bilirubin < 0.2 GGT 10 AST 24 ALT 16 Alkaline Phosphatase 76 Lactate Dehydrogenase 240 H Troponin T Total Protein 6.0 Albumin 3.6 Globulin 2.4 Albumin/Globulin Ratio 1.5 Triglycerides 65 Urine Color Yellow Urine Appearance Clear Urine pH 7.0 Ur Specific [place] 1.015 Urine Protein Negative Urine Glucose (UA) Negative Urine Ketones Negative Urine Occult Blood Trace-intact A Urine Nitrate Negative Urine Bilirubin Negative Urine Urobilinogen Normal Ur Leukocyte Esterase Negative Urine RBC 2 Urine WBC 3 Ur Squamous Epith Cells 1 Ur Transition Epith Cell < 1 Other Crystals None Urine Bacteria None Ur Culture Indicated? No 09/16/21 09/16/21 09/16/21 10:53 10:08 10:08 WBC RBC Hgb Hct MCV MCH MCHC RDW Plt Count MPV Immature Gran % (Auto) Neut % (Auto) Lymph % (Auto) [place] % (Auto) Eos % (Auto) Baso % (Auto) Lymph # (Auto) [place] # (Auto) Eos # (Auto) Baso # (Auto) Immature Gran # Absolute Neutrophils POC PT 11.8 L PT POC INR 1.0 INR APTT Sodium 134 Potassium 4.1 Chloride 98 Carbon Dioxide 25 Anion Gap 11.0 BUN 23 Creatinine 1.1 GFR Calculation 45 Glucose 110 H Uric Acid Calcium 8.7 Phosphorus Magnesium Total Bilirubin 0.4 Direct Bilirubin GGT AST 30 ALT 19 Alkaline Phosphatase 87 Lactate Dehydrogenase Troponin T < 0.01 Total Protein 6.9 Albumin 4.1 Globulin 2.8 Albumin/Globulin Ratio 1.5 Triglycerides Urine Color Urine Appearance Urine pH Ur Specific [place] Urine Protein Urine Glucose (UA) Urine Ketones Urine Occult Blood Urine Nitrate Urine Bilirubin Urine Urobilinogen Ur Leukocyte Esterase Urine RBC Urine WBC Ur Squamous Epith Cells Ur Transition Epith Cell Other Crystals Urine Bacteria Ur Culture Indicated? 09/16/21 09/16/21 10:08 10:08 WBC 8.4 RBC 3.61 Hgb 11.6 Hct 34.9 MCV 96.7 MCH 32.1 MCHC 33.2 RDW 12.9 Plt Count 257 MPV 10.1 Immature Gran % (Auto) 0.4 Neut % (Auto) 62.2 Lymph % (Auto) 16.1 [place] % (Auto) 10.8 Eos % (Auto) 10.3 H Baso % (Auto) 0.2 Lymph # (Auto) 1.36 L [place] # (Auto) 0.91 H Eos # (Auto) 0.87 H Baso # (Auto) 0.02 Immature Gran # 0.03 Absolute Neutrophils 5.28 POC PT PT 12.5 POC INR INR 0.9 APTT 31.4 Sodium Potassium Chloride Carbon Dioxide Anion Gap BUN Creatinine GFR Calculation Glucose Uric Acid Calcium Phosphorus Magnesium Total Bilirubin Direct Bilirubin GGT AST ALT Alkaline Phosphatase Lactate Dehydrogenase Troponin T Total Protein Albumin Globulin Albumin/Globulin Ratio Triglycerides Urine Color Urine Appearance Urine pH Ur Specific [place] Urine Protein Urine Glucose (UA) Urine Ketones Urine Occult Blood Urine Nitrate Urine Bilirubin Urine Urobilinogen Ur Leukocyte Esterase Urine RBC Urine WBC Ur Squamous Epith Cells Ur Transition Epith Cell Other Crystals Urine Bacteria Ur Culture Indicated? Discharge Plan Patient/Caregiver Discharge Instructions Activity: ambulate only with your walker Diet: Regular Diet Instructions: Aspirin (By mouth), Transient Ischemic Attack (DC) Activity Restrictions/Additional Instructions: Resume regular home diet as tolerated. Take all meals up in chair, sitting at 90 degrees, to prevent aspiration. Increase activity as tolerated. Ambulate only with your walker. Continue fall precautions. Take all medication as directed. Continue aspirin for CVA prophylaxis. Your prescription was electronically transmitted to [facility]. Take your insurance cards, and photo ID to peanut picker your medication. Follow-up with your PCP in 5 to 7 days. See a school photographs detailer for evaluation of your vaginal bleeding. Return to ER for fever, chills, uncontrolled pain, inability to urinate or have a bowel movement, nausea and/or vomiting, swelling, redness, signs of infection, shortness of breath, chest pain, return of symptoms, or other acute symptom. This discharge packet is provided to you to help keep you informed about your care. We want to ensure you get everything you need when you go home. You will also be receiving a call from us in a few days to follow up with you and see how you are doing since your discharge. This gives us a chance to listen to any concerns you maybe experiencing since you were discharged or any additional needs you may have, as well as providing us feedback on your care experience. We strive to always provide excellent care and thank you for your feedback and for choosing [facility]. Prescriptions: New aspirin 325 mg Tablet,Delayed Release (Dr/Ec) 325 mg PO DAILY Qty: 30 0RF Continued hydroxyzine HCl 25 mg tablet See Rx Instructions .ROUTE .COMPLEX Qty: 60 0RF Dose Instruction: TAKE 1-2 TABLETS BY MOUTH DAILY AT BEDTIME FOR ANXIETY Rx Instructions: TAKE 1-2 TABLETS BY MOUTH DAILY AT BEDTIME FOR ANXIETY lamotrigine 150 mg tablet 150 mg PO QDAY Qty: 30 2RF duloxetine 60 mg capsule,delayed release(DR/EC) 60 mg PO DAILY Qty: 30 1RF alprazolam 1 mg tablet 1 mg PO QHS PRN (Reason: anxiety) Qty: 14 0RF Rx Instructions: Take 1/2 to 1 tablet by mouth at bedtime for anxiety. DO NOT OPERATE MOTORIZED EQUIPMENT WHILE TAKING quetiapine 25 mg tablet 25 mg PO HS Qty: 60 1RF imipramine HCl 50 mg tablet 50 mg PO HS Qty: 30 1RF cholecalciferol (vitamin D3) 1 tab PO QDAY fexofenadine [Yari Allergy] 180 mg tablet 180 mg PO BID guaifenesin [Mucinex] PO triamcinolone acetonide [Nasacort] 55 mcg aerosol,spray See Rx Instructions intranasal .COMPLEX Rx Instructions: intranasal; administer into each nostril ascorbic acid (vitamin C) 1 tab PO QDAY fluoxetine 40 mg capsule 40 mg PO QDAY albuterol sulfate [ProAir HFA] 90 mcg/actuation HFA aerosol inhaler 2 puff inhalation .Q4-6H PRN (Reason: shortness of breath or wheezing) Qty: 8.5 3RF Rx Instructions: Take 2 puffs orally every 4-6 hours as needed for shortness of breath. Advair HFA 115-21 mcg/actuation HFA aerosol inhaler 2 puff inhalation BID Qty: 12 3RF Rx Instructions: Take 2 puffs twice a day with spacer; rinse and clear mouth after. Spiriva Respimat 2.5 mcg/actuation mist 2 puff INHALATION DAILY Qty: 4 0RF Rx Instructions: 2 inhalations daily. levothyroxine 50 MCG tablet 1 tab PO DAILY Rx Instructions: Daily before meal Lumigan 0.01 % drops 1 drp OPHTHALMIC (EYE) DAILY Label Comments: Instill 1 drop into both eyes every evening pramipexole 1 mg tablet 1 mg PO HS telmisartan-hydrochlorothiazid 80-12.5 mg tablet 1 tab PO QHS timolol maleate 0.5 % drops 1 drp OPHTHALMIC (EYE) DAILY albuterol sulfate 1.25 mg/3 mL solution for nebulization 1.25 mg inhalation Q4H PRN (Reason: shortness of breath or wheezing) Qty: 90 1RF hydrocodone-acetaminophen 5-325 mg tablet 1 tab PO Q6H PRN (Reason: pain) Qty: 30 0RF Follow Up Plan Follow up with: No,PCP [Primary Care Provider] - Patient Disposition: Home, Self-Care Rehab Potential: Fair I certify that the patient requires SNF services: No Overall status at discharge: patient is back to baseline Discharge Orders: Discharge Order (Routine); Ordered 09/17/21 Ordered By: Henrry Hull
[2021-09-17] MEDS: HEPARIN 5,000 UNIT/ML VIAL SQ SCH (08:47)
[2021-09-17] MEDS: INSULIN LISPRO 1 UNIT/0.01 ML UNIT SQ SCH (08:49)
[2021-09-17] MEDS ORDERED: FLUoxetine HCL 20 MG CAPSULE PO SCH (09:00)
[2021-09-17] MEDS ORDERED: MULTIVIT,THER IRON,CA,FA & MIN 1 TABLET PO SCH (09:00)
[2021-09-17] MEDS ORDERED: DULoxetine 30 MG CAPSULE PO SCH (09:00)
[2021-09-17] MEDS: DOCUSATE SODIUM 100 MG CAPSULE PO SCH (09:00)
[2021-09-17] MEDS ORDERED: ASPIRIN 325 MG ENTERIC COATED TABLET PO SCH (09:00)
[2021-09-17] MEDS ORDERED: PRAMIPEXOLE 1 MG TABLET PO SCH (21:00)
[2021-09-17] MEDS ORDERED: IMIPRAMINE 25 MG TABLET PO SCH (21:00)
[2021-09-17] MEDS ORDERED: QUEtiapine 25 MG TABLET PO SCH (21:00)
--- NOTE | 2021-09-19 15:58 | EKG ---
[facility] Test Date: 2021-09-16 Pat Name: Jaiden Acosta Department: ED Room: Gender: Female Cotton Baler: MARIA DEL CARMEN : 1930 Requested By: Gary Lake Order Number: [id number] Reading MD: Brent Barrera M.D. Measurements Intervals Cameron Rate: 82 P: 83 MD: 198 QRS: 79 QRSD: 114 T: 85 QT: 401 QTc: 469 Interpretive Statements Sinus rhythm Incomplete LBBB Possible Anteroseptal infarct, old Borderline ST depression, anterolateral leads No significant change compared to prior ECG. Electronically Signed On 09-19-2021 15:58:05 PDT by Brent Barrera M.D. /[email or web address]/[id number]
== END 2021-09-17 11:14 | disposition home or self-care (01) ==
LOC: ED 09:56 → ICU 09:56
PROVIDERS: ADMIT Internal Medicine; ATTEND Internal Medicine